=== PATIENT | male | born 1945 | race Caucasian/White ===

== ENCOUNTER → 2016-11-20 | Outpatient (CLI) | payer OTHER ==
[~2016-11-20] MED LIST: ALEV220T26; AMMO12CR4 TOP; ASCO500T PO; ASPI1TAB PO; BABY81CH OR; BENZ200C44 PO; BIOTCAP PO; CAL; CALC1TAB12 PO; CALCIUM WITH VIT D PO; CELE-19 PO; CEPH500T PO; CHLO25TA PO; CINN500C9 PO; COUM2.5T11 PO; DILA100C OR; FERR325T OR; FERR325T3 PO; FOSI; FOSINOPRIL PO; IRBE150T14 PO; LYRI75CA PO; MULTCAP PO; MULTIVIT PO; NORC1TAB4 PO; PERC5TAB6 PO; PHEN125S PO; PREVINJ2; PROBCAP4 PO; REQU1TAB16 PO; STOOL SOFTENER PO; TESS100C PO; TYLE325T5 PO; U; VALS1TAB46 PO; VIT; VIT B12 PO; VITA-199 PO; VITA100054 PO; VITA500C10 PO; VITA500C24 PO; VITA500T68 PO; VITMTA PO; WARF-23 PO; [UNRECOGNIZED DRUG - OTHER] PO
[2016-11-20 18:16] LABS: BASO # 0.1 K/mm3 (0.0-0.2); BASO % 0.4 % (0.0-1.0); EOS # 0.2 K/mm3 (0.0-0.50); EOS % 1.2 % (0.0-3.0); LARGE UNSTAINED CELL # 0.1 K/mm3 (0.0-0.4); LARGE UNSTAINED CELL % 0.9 % (0.0-4.0); LYMPH % 11.9 % (24.0-44.0); MEAN CORPUSCULAR HEMOGLOBIN 28.3 pg (27.0-33.0); MEAN CORPUSCULAR VOLUME 91.3 fl (80.0-96.0); MONO # 0.9 K/mm3 (0.0-0.8); MONO % 5.6 % (0.0-5.0); NEUTROPHILS # 12.2 K/mm3 (1.8-7.7); NEUTROPHILS % 79.9 % (36.0-66.0); PLATELET COUNT, AUTOMATED 621 k/mm3 (150-450); RED CELL DISTRIBUTION WIDTH 13.5 % (11.5-14.5); WHITE BLOOD COUNT 15.2 K/mm3 (4.0-10.0)
[2016-11-20 18:42] LABS: ALBUMIN 2.5 GM/DL (3.2-5.2); ALBUMIN/GLOBULIN RATIO 0.54 (1.00-1.93); BILIRUBIN,TOTAL 0.3 MG/DL (0.2-1.0); CALCIUM LEVEL 8.5 MG/DL (8.8-10.2); CREATININE FOR GFR 1.3 MG/DL (0.70-1.30); GLOMERULAR FILTRATION RATE 58.1 (>42); POTASSIUM SERUM 4.3 MEQ/L (3.5-5.1); TOTAL PROTEIN 7.1 GM/DL (6.4-8.2)
== END ==
LOC: M WUC 15:42
PROVIDERS: ATTEND Physician Assistant
DX: R10.11 Right upper quadrant pain (principal)

== ENCOUNTER 2016-11-22 10:42 | Emergency (ER) | payer OTHER ==
[~2016-11-22] VITALS: Ht 185.4 cm; Wt 149.7 kg
[~2016-11-22 10:42] MED LIST changes: -AMMO12CR4 TOP; -ASCO500T PO; -BENZ200C44 PO; -CALC1TAB12 PO; -CEPH500T PO; -CHLO25TA PO; -NORC1TAB4 PO; -PREVINJ2; -PROBCAP4 PO; -TESS100C PO; -VALS1TAB46 PO; -VITA-199 PO; -VITA500C10 PO; -VITMTA PO; -WARF-23 PO
[2016-11-22] MEDS ORDERED: AMMO12CR4 TOP (10:58)
[2016-11-22] MEDS ORDERED: WARF-23 PO (10:58)
[2016-11-22] MEDS ORDERED: PROBCAP4 PO (10:58)
[2016-11-22] MEDS ORDERED: CHLO25TA PO (10:58)
[2016-11-22] MEDS ORDERED: PREVINJ2 (10:58)
[2016-11-22] MEDS ORDERED: CEPH500T PO (10:58)
[2016-11-22] MEDS ORDERED: VITA500C10 PO (10:58)
[2016-11-22] MEDS ORDERED: VALS1TAB46 PO (10:58)
[2016-11-22 11:53] LABS: BASO # 0.1 K/mm3 (0.0-0.2); BASO % 0.5 % (0.0-1.0); EOS # 0.2 K/mm3 (0.0-0.50); EOS % 1.5 % (0.0-3.0); LARGE UNSTAINED CELL # 0.2 K/mm3 (0.0-0.4); LYMPH % 13.2 % (24.0-44.0); MEAN CORPUSCULAR HGB CONC 30.9 g/dl (32.0-36.5); MEAN CORPUSCULAR VOLUME 90.7 fl (80.0-96.0); MONO # 0.6 K/mm3 (0.0-0.8); MONO % 3.9 % (0.0-5.0); NEUTROPHILS # 11.4 K/mm3 (1.8-7.7); NEUTROPHILS % 79.9 % (36.0-66.0); PLATELET COUNT, AUTOMATED 605 k/mm3 (150-450); RED CELL DISTRIBUTION WIDTH 13.5 % (11.5-14.5); WHITE BLOOD COUNT 14.3 K/mm3 (4.0-10.0)
[2016-11-22 12:08] LABS: ALBUMIN 2.5 GM/DL (3.2-5.2); ALBUMIN/GLOBULIN RATIO 0.49 (1.00-1.93); ALKALINE PHOSPHATASE 165 U/L (45-117); ALT/SGPT 22 U/L (12-78); ANION GAP 7 MEQ/L (8-16); AST/SGOT 22 U/L (15-37); BILIRUBIN,DIRECT < 0.1 MG/DL (0.0-0.2); BILIRUBIN,TOTAL 0.2 MG/DL (0.2-1.0); BLOOD UREA NITROGEN 38 MG/DL (7-18); CALCIUM LEVEL 9.3 MG/DL (8.8-10.2); CARBON DIOXIDE LEVEL 31 MEQ/L (21-32); CHLORIDE LEVEL 99 MEQ/L (98-107); CREATININE FOR GFR 1.14 MG/DL (0.70-1.30); GLOMERULAR FILTRATION RATE > 60.0 (>42); GLUCOSE, FASTING 102 MG/DL (83-110); POTASSIUM SERUM 3.8 MEQ/L (3.5-5.1); SODIUM LEVEL 137 MEQ/L (136-145); TOTAL PROTEIN 7.6 GM/DL (6.4-8.2)
[2016-11-22 13:20] LABS: INR 6.91
[2016-11-22] MEDS ORDERED: ISOVUE-370 76% 100ML VIAL (Q9967) As Ordered ONE (13:24)
[2016-11-22] MEDS ORDERED: MORPHINE 4 MG/ML 1ML SYRINGE IV ONE (13:30)
--- NOTE | 2016-11-22 13:36 | REP ---
RIGHT UPPER QUADRANT SONOGRAPHY: HISTORY: Pain and lump. Question hematoma versus hernia. FINDINGS: Scanning through the area of the palpable lump demonstrates a complex predominately hypoechoic lesion measuring 9.7 x 3.8 x 1.7 cm. There appears to be a layering echogenic material suggesting a fluid collection. No peristalsis is seen. The lesion is in the deep subcutaneous fat layer. IMPRESSION: Complex hypoechoic 9.7 x 3.8 x 1.7 cm lesion compatible with hematoma abscess or other lesion. It does not appear to be a bowel containing hernia. Abdominal CT study may provide more information. Signed by Alexsander Lawton MD 11/22/2016 04:59 P
[2016-11-22] MEDS ORDERED: NS 500 ML IV ONE (13:45)
--- NOTE | 2016-11-22 14:42 | REP ---
CT ABDOMEN PELVIS WITHOUT IV OR ORAL CONTRAST: HISTORY: Right upper quadrant pain. Question hematoma. Comparison is made with today's sonography. Comparison CT study is from March 24, 2014. CT FINDINGS: There is normal bowel gas pattern on the digital center customer service associate radiograph. The lung bases show mild bibasilar linear fibrosis. There is an eventration of the left hemidiaphragm posteriorly. The patient's right upper anterior abdominal wall mass is seen to be a fusiform slightly hyperdense heterogeneous lesion within in the right rectus abdominis muscle consistent with a rectus sheath hematoma. This measures 10.4 x 5.7 x 13.4 cm. There is some adjacent inflammatory edema. No abdominal wall defect or hernia is seen. The liver and spleen are normal in size and homogeneous in texture. No adrenal lesion is seen. Pancreas is unremarkable. There is a tiny accessory splenule. The gallbladder is distended measuring 13 cm in greatest diameter. No stone is seen by CT. Incidental note is made of a fairly large area of nodular mural thickening involving the hepatic flexure segment of the colon consistent with adenocarcinoma. There is no definite adjacent adenopathy but there is some pericolonic fat streaking. No diverticular changes are seen. Normal appendix is observed. The lesion involves the ascending colon just above the ileocecal valve. It measures 8 cm in length. The kidneys enhance symmetrically are morphologically intact. Dystrophic calcifications seen in the prostate. No bony destructive lesion is seen. IMPRESSION: 1. 13 cm right upper abdominal rectus sheath hematoma. 2. Distended gallbladder. 3. Annular napkin ring-like mass lesion involving the ascending colon and hepatic flexure consistent with adenocarcinoma. Signed by Alexsander Lawton MD 11/22/2016 05:01 P
[2016-11-22] MEDS ORDERED: NORC1TAB4 PO (16:06)
[2016-11-22] MEDS ORDERED: TESS100C PO (16:06)
[2016-11-22 16:43] VITALS: BP 141/80
[2016-12-17] MEDS ORDERED: CINN500T PO (11:24)
[2016-12-17] MEDS ORDERED: ROPI2TAB PO (11:24)
[2016-12-17] MEDS ORDERED: GLUC1CAP10 PO (11:24)
[2016-12-17] MEDS ORDERED: PHEN15CA58 PO (11:37)
[2016-12-17] MEDS ORDERED: WARF-23 PO (11:49)
== END 2016-11-22 16:45 | disposition home or self-care (01) ==
LOC: M ED 11:49
DX: S30.1XXA Contusion of abdominal wall, initial encounter (principal); X58.XXXA Exposure to other specified factors, initial encounter; Y92.89 Other specified places as the place of occurrence of the external cause; Y93.89 Activity, other specified; D64.9 Anemia, unspecified; Y99.8 Other external cause status; K63.89 Other specified diseases of intestine; D68.9 Coagulation defect, unspecified; I48.91 Unspecified atrial fibrillation; I10 Essential (primary) hypertension; G47.30 Sleep apnea, unspecified; Z98.84 Bariatric surgery status; Z79.899 Other long term (current) drug therapy; Z79.01 Long term (current) use of anticoagulants; Z91.012 Allergy to eggs; Z91.018 Allergy to other foods; Z87.891 Personal history of nicotine dependence

== ENCOUNTER 2016-11-23 02:58 | Emergency (ER) | payer OTHER ==
[~2016-11-23] VITALS: Ht 185.4 cm; Wt 149.7 kg
[~2016-11-23 02:58] MED LIST changes: +AMMO12CR4 TOP; +CEPH500T PO; +CHLO25TA PO; +NORC1TAB4 PO; +PREVINJ2; +PROBCAP4 PO; +TESS100C PO; +VALS1TAB46 PO; +VITA500C10 PO; +WARF-23 PO
[2016-11-23] MEDS ORDERED: PHYTONADIONE 5 MG TAB PO ONE (05:30)
[2016-11-23] MEDS ORDERED: PHYTONADIONE INJection 5 MG in NS 50 ML IV ONE (05:30)
[2016-11-23] MEDS ORDERED: DERMABOND TOPICAL SKIN ADHESIVE TOP ONE (06:15)
[2016-11-23 06:51] VITALS: BP 128/87
[2016-11-24] MEDS ORDERED: ASCO500T PO (12:30)
[2016-11-24] MEDS ORDERED: BENZ200C44 PO (12:30)
[2016-11-24] MEDS ORDERED: VITMTA PO (12:30)
[2016-11-24] MEDS ORDERED: VITA-199 PO (12:30)
[2016-11-24] MEDS ORDERED: CALC1TAB12 PO (12:36)
[2016-12-17] MEDS ORDERED: CINN500T PO (11:24)
[2016-12-17] MEDS ORDERED: ROPI2TAB PO (11:24)
[2016-12-17] MEDS ORDERED: GLUC1CAP10 PO (11:24)
[2016-12-17] MEDS ORDERED: PHEN15CA58 PO (11:37)
[2016-12-17] MEDS ORDERED: WARF-23 PO (11:49)
== END 2016-11-23 06:52 | disposition home or self-care (01) ==
LOC: M ED 04:04
DX: T80.89XA Other complications following infusion, transfusion and therapeutic injection, initial encounter (principal); D68.9 Coagulation defect, unspecified; I48.91 Unspecified atrial fibrillation; G40.909 Epilepsy, unspecified, not intractable, without status epilepticus; Z79.899 Other long term (current) drug therapy; Z79.01 Long term (current) use of anticoagulants; Z91.012 Allergy to eggs; Z91.018 Allergy to other foods

== ENCOUNTER 2016-11-24 09:09 | Inpatient (IN) | payer OTHER ==
[~2016-11-24] VITALS: Ht 185.4 cm; Wt 139.0 kg
[2016-11-24 10:30] LABS: MEAN CORPUSCULAR HEMOGLOBIN 27.6 pg (27.0-33.0); MEAN CORPUSCULAR HGB CONC 30.2 g/dl (32.0-36.5); MEAN CORPUSCULAR VOLUME 91.3 fl (80.0-96.0); RED CELL DISTRIBUTION WIDTH 14.1 % (11.5-14.5); WHITE BLOOD COUNT 18.1 K/mm3 (4.0-10.0)
[2016-11-24 10:37] LABS: INR 1.38
[2016-11-24] MEDS ORDERED: NS 1,000 ML IV ONE (12:15)
[2016-11-24] MEDS ORDERED: BENZ200C44 PO (12:30)
[2016-11-24] MEDS ORDERED: VITMTA PO (12:30)
[2016-11-24] MEDS ORDERED: ASCO500T PO (12:30)
[2016-11-24] MEDS ORDERED: VITA-199 PO (12:30)
[2016-11-24] MEDS ORDERED: CALC1TAB12 PO (12:36)
[2016-11-24] MEDS ORDERED: ONDANSETRON 4 MG TAB (S0181) PO PRN (13:00)
[2016-11-24] MEDS ORDERED: NORCO, ANEXSIA 5/325MG TABLET (HYDROcodone/ACETAMINOPHEN) PO PRN (13:15)
[2016-11-24] MEDS ORDERED: BENZONATATE 100 MG CAP PO PRN (13:15)
--- NOTE | 2016-11-24 13:31 | HPE ---
DATE OF ADMISSION: 11/24/2016 REASON FOR ADMISSION: Abdominal wall hematoma, colon mass, and gastrointestinal (GI) bleed. PRIMARY CARE PROVIDER: Dr. Landry ATTENDING PROVIDER: Dr. Wagner HISTORY OF PRESENT ILLNESS: The patient is a 71-year-old male, past medical history significant for atrial fibrillation, hypertension, iron deficiency anemia and seizure disorder, presented to the emergency room on 11/22/2016, complaining of right upper quadrant pain. He stated he recently had an upper respiratory tract infection, and he had been coughing forcibly until he started to feel abdominal pain. He came to the emergency room. In the emergency room (ER), he had a CT of the abdomen, which showed a 13 cm right upper abdominal rectus sheath hematoma, distended gallbladder and annular napkin ring like mass lesion involving the ascending colon and hepatic flexure, consistent with adenocarcinoma. The patient was instructed to go home and make an appointment with Dr. Tran, who was contacted from the emergency room that day. He was also to return back for recheck in the emergency room in 2 days for hematocrit check. The patient presented to the emergency room again yesterday because of bleeding from his IV site. INR was found to be 6.9 on 11/22/2016 and then yesterday labs were not repeated but the patient was given a dose of vitamin K. Today, his INR is 1.38. At that time, it was thought that the patient is best to be admitted since his hemoglobin also dropped a little bit from 9.8 on 11/22/2016 to 9.0 on 11/24/2016. Hematoma appears to be stable. Dr. Tran was re-consulted from the emergency room and hospitalist was called for the admission. At this time, the patient denies any dizziness, lightheadedness, chest pain or shortness of breath, only complaining of abdominal pain. Denies bright red blood in the stool, but has stated that it has been dark. However, the patient is normally on iron daily. No other symptoms or complaints. REVIEW OF SYSTEMS: 12-point review of systems was obtained, all of which was negative except for those mentioned above. PAST MEDICAL HISTORY: Significant for atrial fibrillation, hypertension, iron deficiency anemia and seizures. PAST SURGICAL HISTORY: Significant for bilateral knee, gastric bypass. ALLERGIES: No known drug allergies. SOCIAL HISTORY: The patient used to smoke but has quit 30 years ago. Alcohol use rarely. He lives at home with his . FAMILY HISTORY: The patient is adopted. HOME MEDIATIONS: Include: - Tylenol ever 4 hours as needed for pain - Candia 5-325 one tablet every 6 hours as needed for pain - vitamin C 1000 mcg by mouth daily - benzonatate 200 mg as needed for cough - chlorthalidone 25 mg by mouth daily - iron sulfate 325 mg by mouth daily - probiotic one capsule by mouth daily - multivitamin two tablets by mouth daily - phenytoin 250 mg in the morning and 375 mg at night - valsartan 80 mg by mouth daily PHYSICAL FINDINGS: Vital Signs: On admission, temperature 97.7, pulse 77, respiratory rate 18, blood pressure is 114/72, pulse oximetry 98% on room air. HEENT: Pupils equal, round, reactive to light and accommodation. Neck is supple. No jugular venous distention. Lungs: Clear to auscultation bilaterally. Cardiac: Irregular rate and rhythm. Abdomen: Tenderness to palpation. Positive bowel sounds. Soft. Extremities: No clubbing, cyanosis or edema. Neurologic: Cranial nerves II-XII grossly intact. No focal deficits. LABORATORY FINDINGS: WBC is 18.1, hemoglobin 9.0, hematocrit 29.8, platelet count 636, PT 17.1, INR 1.38. IMAGING: As above. ASSESSMENT AND PLAN: 1. Abdominal wall hematoma [address] scan done on 11/22/2016. Dr. Tran was consulted. We will continue to hold the patient's Coumadin. Continue to monitor. Continue Candia for pain control. 2. Colonic mass at the hepatic flexure. The patient will likely need a workup prior to discharge home. Dr. Tran will see the patient and decide when to do colonoscopy. We will continue to monitor the patient on the progressive care unit (PCU). 3. History of atrial fibrillation rate. Rate is controlled. We will hold Coumadin. The patient's INR today is 1.3; it was 6.25 two days ago. We will continue to hold for now. 4. History of hypertension. We will resume the patient's chlorthalidone but hold valsartan for now. 5. History of iron deficiency anemia. Continue iron sulfate. The patient has a positive occult blood today. 6. History of seizures. Will continue the patient's home dose of phenytoin. 7. Deep vein thrombosis (DVT) prophylaxis. Thromboembolism deterrents (TEDs) and sequentials while in bed.
[2016-11-24 14:22] VITALS: BP 125/66
[2016-11-24 16:00] VITALS: BP 127/52
[2016-11-24 16:33] VITALS: BP_SYST 116; BP_SYST 125; BP_DIAS 52; BP_DIAS 91
[2016-11-24 16:34] VITALS: BP 113/74
[2016-11-24 20:00] VITALS: BP 120/63
[2016-11-24] MEDS: PHENYTOIN 100 MG/4 ML SUSP UDC PO SCH (20:14)
[2016-11-24 23:59] VITALS: BP_SYST 116; BP_SYST 117; BP_SYST 98; BP_DIAS 54; BP_DIAS 64
[2016-11-25] VITALS (8 sets, daily range): BP systolic 115–146; BP diastolic 52–81
[2016-11-25] MEDS ORDERED: SLF 3 ML SYR IV PRN (00:30)
[2016-11-25] MEDS: SLF 3 ML SYR IV SCH ×3 (04:14→20:50)
[2016-11-25 04:46] LABS: MEAN CORPUSCULAR HGB CONC 30.4 g/dl (32.0-36.5); MEAN CORPUSCULAR VOLUME 92.1 fl (80.0-96.0); RED CELL DISTRIBUTION WIDTH 14.1 % (11.5-14.5); WHITE BLOOD COUNT 13.7 K/mm3 (4.0-10.0)
[2016-11-25 05:06] LABS: INR 1.42
[2016-11-25 05:08] LABS: ALBUMIN/GLOBULIN RATIO 0.49 (1.00-1.93); ALKALINE PHOSPHATASE 133 U/L (45-117); ALT/SGPT 19 U/L (12-78); ANION GAP 7 MEQ/L (8-16); AST/SGOT 21 U/L (15-37); BILIRUBIN,TOTAL 0.2 MG/DL (0.2-1.0); BLOOD UREA NITROGEN 24 MG/DL (7-18); CALCIUM LEVEL 7.7 MG/DL (8.8-10.2); CARBON DIOXIDE LEVEL 32 MEQ/L (21-32); CHLORIDE LEVEL 100 MEQ/L (98-107); CREATININE FOR GFR 0.93 MG/DL (0.70-1.30); GLOMERULAR FILTRATION RATE > 60.0 (>42); GLUCOSE, FASTING 98 MG/DL (83-110); MAGNESIUM LEVEL 1.8 MG/DL (1.8-2.4); POTASSIUM SERUM 3.2 MEQ/L (3.5-5.1); SODIUM LEVEL 139 MEQ/L (136-145); TOTAL PROTEIN 6.1 GM/DL (6.4-8.2)
[2016-11-25] MEDS: POTASSIUM CHLORIDE 10 MEQ SR TABLET PO SCH ×2 (08:59→13:48)
[2016-11-25] MEDS: LACTOBACILLUS ACIDOPHILUS CAP (BACID) PO SCH (08:59)
[2016-11-25] MEDS: FERROUS SULFATE 325MG TAB PO SCH (09:00)
[2016-11-25] MEDS: CHLORTHALIDONE 25 MG TAB PO SCH (09:00)
[2016-11-25] MEDS: ASCORBIC ACID 500 MG TAB PO SCH (09:00)
[2016-11-25] MEDS: PHENYTOIN 100 MG/4 ML SUSP UDC PO SCH ×2 (09:02→20:49)
--- NOTE | 2016-11-25 17:31 | IPNPDOC ---
Date Seen The patient was seen on 11/25/16. Progress Note Hospitalist Progress Note Subjective: Patient states that he currently feels well. He has not noticed any bleeding Objective: Physical Exam: Vitals: Vital Sign - Last 24 Hours 11/24/16 11/24/16 11/24/16 11/25/16 20:00 23:59 23:59 04:45 Temp 99.3 99.8 99.6 Pulse 95 95 88 113 90 Resp 18 18 18 B/P 120/63 117/64 115/64 98/54 116/64 Pulse Ox 96 96 94 O2 Delivery Room Air Room Air Room Air 11/25/16 11/25/16 11/25/16 11/25/16 08:00 08:00 08:00 08:03 Temp 97.7 Pulse 84 99 99 Resp 18 B/P 137/60 Supine 137/60 128/66 Standing Sitting Pulse Ox 98 O2 Delivery Room Air 11/25/16 11/25/16 11/25/16 11/25/16 08:06 12:00 16:00 16:00 Temp 97.6 96.6 Pulse 120 106 85 90 102 85 Resp 18 18 B/P 146/64 120/60 116/64 120/52 126/58 116/64 Pulse Ox 95 99 O2 Delivery Room Air Room Air General: Awake, alert, no acute distress HEENT: Normocephalic, atraumatic, extraocular movements intact CV:. Irregularly irregular Lungs: Clear to auscultation bilaterally Abd: Soft, tender to palpation over his hematoma, which is located on the right side of his abdomen and shows mild bruising on the surface Extremities: No edema of bilateral lower extremities Neuro: Alert and oriented 3, normal speech Psych: Normal Mood and affect Labs and Imaging: Laboratory Tests 11/24/16 21:01 11/25/16 04:13 Calcium Level 7.7 #L, Aspartate Amino Transf (AST/SGOT) 21, Alanine Aminotransferase (ALT/SGPT) 19, Total Creatine Kinase 125, Alkaline Phosphatase 133 H, Total Bilirubin 0.2, Total Protein 6.1 L, Albumin 2.0 L, Red Blood Count 3.07 L, Mean Corpuscular Volume 92.1, Mean Corpuscular Hemoglobin 28.0, Mean Corpuscular Hemoglobin Concent 30.4 L, Red Cell Distribution Width 14.1 11/25/16 09:55 Assessment and Plan: 71-year-old male with A. fib, hypertension, iron deficiency anemia, seizure disorder who was diagnosed in the ED several days ago with right upper abdominal rectus sheath hematoma and a masslike lesion in his colon. He returned to the ED several days later, with bleeding from his prior IV site, as well as a decrease in his hemoglobin. 1. Abdominal rectus sheath hematoma: This most likely is secondary to Coumadin induced coagulopathy, as the patient was noted in the ER to have an initial INR of 6.9. He evidently had been coughing quite forcibly. INR is now 1.4, and his Coumadin is on hold. General surgery has been consulted, and we'll continue to monitor the patient. 2. Anemia: The patient's hemoglobin in the emergency department several days ago was 9.8. This dropped to 9.0 upon admission, and has continued to trend down to 8.6. We will continue to monitor his hemoglobin. 3. Masslike lesion in his colon: This is concerning for adenocarcinoma. General surgery has been consulted for colonoscopy, and Dr. Funez tells me he'll put the patient on the schedule for . 4. Leukocytosis: Patient WBC upon admission was 18.1, and this has trended down to 13.7 this morning. He is afebrile. I suspect that this is reactive secondary to his coagulopathy and bleeding into his rectus sheath. We will continue to monitor. He is clinically well-appearing 5. Chronic A. fib: The patient is currently rate controlled. We are holding his Coumadin. The patient does not report any rate suppressing meds. 6. Hypertension: Continue home chlorthalidone, but currently holding home ARB. 7. Seizure disorder: Continue home Dilantin. 8. Hypokalemia: Replacing. DVT prophylaxis: SCDs Dispo: pending stabilization of his hemoglobin; if his hemoglobin stabilizes, he could consider getting his colonoscopy as an outpatient VS, I&O, 24H, Fishbone Vital Signs/I&O Vital Signs Date Time Temp Pulse Resp B/P Pulse Ox O2 Delivery O2 Flow Rate FiO2 11/25/16 16:00 90 120/52 102 126/58 85 116/64 11/25/16 16:00 96.6 18 99 Room Air I&O- Last 24 Hours up to 6 AM 11/25/16 05:59 Intake Total 860 ml Output Total 300 ml Balance 560 ml Laboratory Data 24H LABS Laboratory Tests 2 11/24/16 21:01: Creatine Kinase MB 1.2, Creatine Kinase MB Relative Index 0.83, Total Creatine Kinase 144, Troponin I < 0.02 11/25/16 04:13: Creatine Kinase MB 1.7, Creatine Kinase MB Relative Index 1.36, Total Creatine Kinase 125, Troponin I < 0.02, Blood Urea Nitrogen 24H, Creatinine 0.93, Sodium Level 139, Potassium Level 3.2L, Chloride Level 100, Carbon Dioxide Level 32, Calcium Level 7.7#L, Aspartate Amino Transf (AST/SGOT) 21, Alanine Aminotransferase (ALT/SGPT) 19, Alkaline Phosphatase 133H, Total Bilirubin 0.2, Total Protein 6.1L, Albumin 2.0L, Albumin/Globulin Ratio 0.49L, Anion Gap 7L, Glomerular Filtration Rate > 60.0, Magnesium Level 1.8, Prothromb Time International Ratio 1.42, Prothrombin Time 17.5H 11/25/16 14:01: CBC/BMP Laboratory Tests 11/24/16 21:01 11/25/16 04:13 Calcium Level 7.7 #L, Aspartate Amino Transf (AST/SGOT) 21, Alanine Aminotransferase (ALT/SGPT) 19, Total Creatine Kinase 125, Alkaline Phosphatase 133 H, Total Bilirubin 0.2, Total Protein 6.1 L, Albumin 2.0 L, Red Blood Count 3.07 L, Mean Corpuscular Volume 92.1, Mean Corpuscular Hemoglobin 28.0, Mean Corpuscular Hemoglobin Concent 30.4 L, Red Cell Distribution Width 14.1 11/25/16 09:55 ANMOL PRASAD Nov 25, 2016 17:31
--- NOTE | 2016-11-25 20:25 | ECGEPIP ---
Stationary ECG Study [facility] - ED Test Date: 2016-11-24 Pat Name: ZAC SHIN Department: Room: - Gender: M Undercollar Maker: tommy : [id number] Requested By: STEVE JHA PA-C. Order Number: [id number] Reading MD: Erin Alves Measurements Intervals [place] Rate: 83 P: [place]: 0 QRS: 57 QRSD: 181 T: 19 QT: 431 QTc: 507 Interpretive Statements ATRIAL FLUTTER/FIBRILLATION WITH ABERRANT CONDUCTION OR VENTRICULAR PREMATURE COMPLEXES RIGHT BUNDLE BRANCH BLOCK Electronically Signed On 11-25-2016 20:25:05 EDT by Erin Alves
[2016-11-26 04:31] VITALS: BP 136/80
[2016-11-26] MEDS: ACETAMINOPHEN 325 MG TAB PO PRN ×2 (04:33→08:53)
[2016-11-26] MEDS: SLF 3 ML SYR IV SCH ×3 (05:22→21:36)
[2016-11-26 05:44] LABS: MEAN CORPUSCULAR HEMOGLOBIN 28.6 pg (27.0-33.0); MEAN CORPUSCULAR HGB CONC 30.7 g/dl (32.0-36.5); RED CELL DISTRIBUTION WIDTH 14.1 % (11.5-14.5); WHITE BLOOD COUNT 11.9 K/mm3 (4.0-10.0)
[2016-11-26 05:50] LABS: INR 1.44
[2016-11-26 06:09] LABS: ALBUMIN/GLOBULIN RATIO 0.48 (1.00-1.93); ALKALINE PHOSPHATASE 139 U/L (45-117); ALT/SGPT 26 U/L (12-78); ANION GAP 8 MEQ/L (8-16); AST/SGOT 32 U/L (15-37); BILIRUBIN,TOTAL 0.2 MG/DL (0.2-1.0); BLOOD UREA NITROGEN 21 MG/DL (7-18); CALCIUM LEVEL 7.9 MG/DL (8.8-10.2); CARBON DIOXIDE LEVEL 30 MEQ/L (21-32); CHLORIDE LEVEL 102 MEQ/L (98-107); CREATININE FOR GFR 0.97 MG/DL (0.70-1.30); GLOMERULAR FILTRATION RATE > 60.0 (>42); GLUCOSE, FASTING 92 MG/DL (83-110); MAGNESIUM LEVEL 1.9 MG/DL (1.8-2.4); POTASSIUM SERUM 3.7 MEQ/L (3.5-5.1); SODIUM LEVEL 140 MEQ/L (136-145); TOTAL PROTEIN 6.2 GM/DL (6.4-8.2)
[2016-11-26 07:50] VITALS: BP 122/84
[2016-11-26] MEDS: CHLORTHALIDONE 25 MG TAB PO SCH (08:49)
[2016-11-26] MEDS: FERROUS SULFATE 325MG TAB PO SCH (08:49)
[2016-11-26] MEDS: LACTOBACILLUS ACIDOPHILUS CAP (BACID) PO SCH (08:49)
[2016-11-26] MEDS: ASCORBIC ACID 500 MG TAB PO SCH (08:49)
[2016-11-26] MEDS: PHENYTOIN 100 MG/4 ML SUSP UDC PO SCH ×2 (08:50→21:35)
[2016-11-26] MEDS ORDERED: ISOVUE-370 76% 100ML VIAL (Q9967) As Ordered ONE (10:16)
--- NOTE | 2016-11-26 10:16 | IPN ---
DATE OF SERVICE: 11/26/2016 A 71-year-old male seen at bedside resting comfortably. He denies any issues overnight. However, he has had a cough for 6 months now, he informs me. He is currently being placed on a schedule for a colonoscopy this coming with Dr. Funez due to a colonic mass. He feels his abdominal pain and hematoma is doing somewhat better, and we had discussed earlier this morning during multidisciplinary rounds about downgrading to the general medical floor. He has no signs or issues with bleeding or bruising. No hematemesis, hemoptysis, hematochezia, or melena. No hematuria. OBJECTIVE: Temperature is 98.2, pulse 96, respiratory rate is 22, blood pressure (BP) 122/84, SpO2 is 97% on room air. General: The patient appears to be in no acute distress. He is alert, oriented, pleasant. HEENT: Unremarkable. Lungs: Clear. Heart: Regular rate and rhythm. Abdomen is obese. He does have ecchymosis and bruising and palpable tenderness in the right upper quadrant, as stated previously. However, this does appear to be at an advanced stage of healing with the ecchymosis being more of a greenish discoloration at this time but does appear to be resolving. Extremities: No edema. No calf tenderness. LABORATORY DATA: White count is 11.9, hemoglobin 9.1 and stable, platelets are 569,000. Sodium 140, potassium 3.7, chloride 102, bicarbonate 30, anion gap 8, BUN 21, creatinine 0.97, glucose 92, magnesium 1.9, AST is 32, ALT 26, alkaline phosphatase 139, albumin is 2.0. INR 1.44. ASSESSMENT AND PLAN: 1. Abdominal rectus sheath hematoma. International normalized ratio (INR) currently 1.44. Coumadin is on hold. General surgery has been consulted. Will continue to monitor. His hemoglobin and hematocrit remains stable. 2. Acute blood loss anemia. His hemoglobin and hematocrit does appear to be stable. Will continue to monitor. He is currently asymptomatic. Will not do any blood transfusion today. 3. Mass-like lesion involving the colon, concerning for adenocarcinoma. Dr. Funez has been consulted and anticipating colonoscopy on . He will likely need bowel prep on Friday. 4. Chronic cough for greater than 6 months. This associated with his concerning lesion in the colon. Will go ahead and get a CT of the chest with contrast today. 5. Leukocytosis. White blood cell (WBC) was elevated on admission. This has trended downward nicely. Will continue to monitor. Clinically, he does not show any signs of sepsis or infection. 6. Chronic atrial fibrillation (AFib). He is rate controlled. Coumadin is currently on hold and will continue to hold for a few more days until likely after his colonoscopy is complete. 7. Hypertension, stable on chlorthalidone. Will likely go ahead and resume his angiotensin receptor manolo (ARB). 8. Seizure disorder. Continue on Dilantin. 9. Hypokalemia, resolved. 10. Deep venous thrombosis (DVT) prophylaxis. Thromboembolic deterrents (TEDs) and sequential compression devices (SCDs). DISPOSITION: He does appear to be doing much better. His hemoglobin and hematocrit is stable. I would like to downgrade him to a general medical floor and, as stated above, we are waiting for Dr. Funez's evaluation and possible colonoscopy on . In the meantime, I would like to go ahead and get a CT of the chest since he has had this chronic cough, which is concerning with his underlying history of possible colonic mass.
[2016-11-26 12:41] VITALS: BP 139/82
[2016-11-26 18:00] VITALS: BP 139/73
[2016-11-26 22:00] VITALS: BP 140/78
[2016-11-27 02:00] VITALS: BP 160/72
--- NOTE | 2016-11-27 03:41 | REP ---
Clinical: Chronic cough. Technique: Axial contrast enhanced images from the thoracic inlet to the upper abdomen using 100 ml Isovue 370 intravenous contrast material with coronal and sagittal re-formations. Comparison: 03/24/2014. Findings: Small to moderate bilateral lower lobe atelectasis and consolidations are appreciated (right greater than left). A 4 mm noncalcified pulmonary nodule in the right lower lobe (image 52) is unchanged compared to 03/24/2014. No pleural effusion. No pneumothorax. Tracheobronchial tree is patent. Nonspecific mediastinal and right hilar adenopathy measuring less than 8 mm short axis diameter. Heart/pericardium and thoracic aorta demonstrate atherosclerotic changes without cardiomegaly or pericardial effusion and no evidence for aortic aneurysm/dissection. Limited evaluation of the upper abdomen demonstrates nodularity to the bilateral adrenal glands likely mild hyperplastic changes. A presumed hematoma in the right rectus muscle measures roughly 11.8 x 5.6 cm transverse diameter. Surrounding musculoskeletal structures demonstrate age-related changes. Impression: 1. Small to moderate bilateral lower lobe atelectasis/consolidations. 2. 4 mm noncalcified pulmonary nodule in the right lower lobe unchanged compared to 03/24/2014 and likely representing chronic benign granuloma. 3. Presumed right rectus hematoma. Signed by Johnathan Cooper MD 11/27/2016 03:33 A
[2016-11-27] MEDS: SLF 3 ML SYR IV SCH ×3 (05:27→20:24)
[2016-11-27 06:00] VITALS: BP 142/94
[2016-11-27] MEDS ORDERED: MOM 30ML SUSPENSION UDC PO ONE (06:00)
[2016-11-27 07:20] LABS: MEAN CORPUSCULAR HEMOGLOBIN 29.5 pg (27.0-33.0); MEAN CORPUSCULAR HGB CONC 31.8 g/dl (32.0-36.5); RED CELL DISTRIBUTION WIDTH 14.4 % (11.5-14.5); WHITE BLOOD COUNT 13.1 K/mm3 (4.0-10.0)
[2016-11-27 07:24] LABS: INR 1.38
[2016-11-27 07:52] LABS: ALBUMIN 2.2 GM/DL (3.2-5.2); ALBUMIN/GLOBULIN RATIO 0.48 (1.00-1.93); ALKALINE PHOSPHATASE 144 U/L (45-117); ALT/SGPT 29 U/L (12-78); ANION GAP 8 MEQ/L (8-16); AST/SGOT 33 U/L (15-37); BILIRUBIN,TOTAL 0.3 MG/DL (0.2-1.0); BLOOD UREA NITROGEN 18 MG/DL (7-18); CALCIUM LEVEL 8.7 MG/DL (8.8-10.2); CARBON DIOXIDE LEVEL 32 MEQ/L (21-32); CHLORIDE LEVEL 100 MEQ/L (98-107); CREATININE FOR GFR 0.88 MG/DL (0.70-1.30); GLOMERULAR FILTRATION RATE > 60.0 (>42); GLUCOSE, FASTING 95 MG/DL (83-110); MAGNESIUM LEVEL 2.4 MG/DL (1.8-2.4); POTASSIUM SERUM 3.7 MEQ/L (3.5-5.1); SODIUM LEVEL 140 MEQ/L (136-145); TOTAL PROTEIN 6.8 GM/DL (6.4-8.2)
[2016-11-27] MEDS: CHLORTHALIDONE 25 MG TAB PO SCH (07:59)
[2016-11-27] MEDS: ASCORBIC ACID 500 MG TAB PO SCH (07:59)
[2016-11-27] MEDS: FERROUS SULFATE 325MG TAB PO SCH (07:59)
[2016-11-27] MEDS: LACTOBACILLUS ACIDOPHILUS CAP (BACID) PO SCH (07:59)
[2016-11-27] MEDS: PHENYTOIN 100 MG/4 ML SUSP UDC PO SCH ×2 (08:00→20:25)
[2016-11-27 10:00] VITALS: BP 127/69
[2016-11-27] MEDS ORDERED: GOLYTELY SOLN 4000 ML BTL PO ONE ×2 (12:00→18:00)
[2016-11-27 14:00] VITALS: BP_SYST 131; BP_SYST 76; BP_DIAS 18; BP_DIAS 67
--- NOTE | 2016-11-27 17:27 | IPN ---
DATE: 11/27/2016 A 71-year-old male seen at bedside. No overnight issues reported. He appears to be resting comfortably. We did discuss his abdominal wall hematoma and he is doing bowel preparation for colonoscopy. No chest pain. No nausea or vomiting. OBJECTIVE: VITAL SIGNS: Temperature is 98.9, pulse 76, respiratory rate 18, blood pressure 127/69, SPO2 is 99% on room air. GENERAL: The patient appears to be in no acute distress. He is alert and oriented. HEENT: Unremarkable. LUNGS: Clear. ABDOMEN: Soft, except for the hematoma. EXTREMITIES: No edema. No calf tenderness. LABORATORY DATA: White count 13.1, hemoglobin 9.6, platelets 640,000. Sodium is 140, potassium 3.7, chloride 100, bicarbonate 32, anion gap 8, BUN is 18, creatinine 0.88, glucose is 95, magnesium 2.4, total bilirubin 0.3, AST is 33, ALT is 29, alkaline phosphatase is 144, albumin 2.2, INR 1.38. ASSESSMENT AND PLAN: 1. Abdominal rectus sheath hematoma. International normalized ratio (INR) is below 2. His Coumadin is on hold. Appreciate surgery's input. Hemoglobin and hematocrit is stable. 2. Acute blood loss anemia, not requiring any further blood transfusion. 3. Mass-like lesion involving the colon, concerning for adenocarcinoma. Appreciate Dr. Funez's input. Anticipate colonoscopy tomorrow. Continue bowel preparation and nothing by mouth. 4. Chronic cough greater than six months. Small to moderate bilateral lobe 4 mm noncalcified pulmonary nodule of the right lower lobe unchanged from 03/24/2014, likely representing a chronic benign granuloma, presumed right rectus hematoma is noted again. He can followup with the granulomas as needed with his outpatient provider. 5. Leukocytosis. We will continue to follow. No signs of sepsis. 6. Chronic atrial fibrillation. He is rate controlled and again the Coumadin is on hold until after his colonoscopy and we are confident that his bleeding into the abdominal rectus sheath has subsided. 7. Hypertension, stable with chlorthalidone. Resume angiotensin-receptor manolo (ARB) tomorrow. 8. Seizure disorder. Continue Dilantin. 9. Hypokalemia, resolved. 10. Deep vein thrombosis (DVT) prophylaxis. Thromboembolic-deterrent stockings (TEDS) and sequential compression device (SCD). DISPOSITION: He does appear to be doing better. Hemodynamically, he does appear to be stable and appreciate Dr. Funez's input with anticipated colonoscopy tomorrow.
[2016-11-27 18:00] VITALS: BP 109/66
[2016-11-27 22:00] VITALS: BP 121/83
[2016-11-28 02:00] VITALS: BP 136/82
[2016-11-28] MEDS: SLF 3 ML SYR IV SCH ×2 (05:23→13:36)
[2016-11-28 06:00] VITALS: BP 134/86
[2016-11-28 06:53] LABS: MEAN CORPUSCULAR HGB CONC 30.5 g/dl (32.0-36.5); MEAN CORPUSCULAR VOLUME 91.8 fl (80.0-96.0); RED CELL DISTRIBUTION WIDTH 14.3 % (11.5-14.5)
[2016-11-28 07:05] LABS: INR 1.56
[2016-11-28 07:21] LABS: ALBUMIN 2.2 GM/DL (3.2-5.2); ALBUMIN/GLOBULIN RATIO 0.51 (1.00-1.93); ALKALINE PHOSPHATASE 145 U/L (45-117); ALT/SGPT 28 U/L (12-78); ANION GAP 6 MEQ/L (8-16); AST/SGOT 26 U/L (15-37); BILIRUBIN,TOTAL 0.3 MG/DL (0.2-1.0); BLOOD UREA NITROGEN 14 MG/DL (7-18); CALCIUM LEVEL 8.5 MG/DL (8.8-10.2); CARBON DIOXIDE LEVEL 34 MEQ/L (21-32); CHLORIDE LEVEL 100 MEQ/L (98-107); GLOMERULAR FILTRATION RATE > 60.0 (>42); GLUCOSE, FASTING 94 MG/DL (83-110); MAGNESIUM LEVEL 2.1 MG/DL (1.8-2.4); POTASSIUM SERUM 3.5 MEQ/L (3.5-5.1); SODIUM LEVEL 140 MEQ/L (136-145); TOTAL PROTEIN 6.5 GM/DL (6.4-8.2)
[2016-11-28] MEDS ORDERED: MOM 30ML SUSPENSION UDC PO ONE (07:45)
[2016-11-28] MEDS: ASCORBIC ACID 500 MG TAB PO SCH (07:57)
[2016-11-28] MEDS: CHLORTHALIDONE 25 MG TAB PO SCH (07:57)
[2016-11-28] MEDS: FERROUS SULFATE 325MG TAB PO SCH (07:57)
[2016-11-28] MEDS: LACTOBACILLUS ACIDOPHILUS CAP (BACID) PO SCH (07:57)
[2016-11-28] MEDS: PHENYTOIN 100 MG/4 ML SUSP UDC PO SCH (07:58)
[2016-11-28 10:00] VITALS: BP 132/90
--- NOTE | 2016-11-28 12:28 | DSES ---
DATE OF ADMISSION: 11/24/2016 DATE OF DISCHARGE: 11/28/2016 PRIMARY CARE PROVIDER: Dr. Landry CONSULTATIONS: Dr. Funez PROCEDURES: Colonoscopy. COMPLICATIONS: None. ADMISSION/DISCHARGE DIAGNOSES: 1. Abdominal wall hematoma. 2. Questionable colonic mass. 3. Gastrointestinal (GI) bleed, resolved. 4. History of atrial fibrillation, rate controlled. 5. Hypertension. 6. Iron-deficiency anemia. 7. Seizures. BRIEF HOSPITAL COURSE: Mr. Lewis is a pleasant 71-year-old gentleman who presented to the emergency department on 11/24/2016 with abdominal wall hematoma, suspected colonic mass and gastrointestinal (GI) bleed. He had an international normalized ratio (INR) initially of 6.9, was given vitamin K and [place] for pain. Chlorthalidone and valsartan were held for low blood pressure. He did not require any blood transfusions. He did slowly improve with his symptomatology and abdominal pain and the patient was given bowel preparation last night and had a colonoscopy this morning. Those results will be attached to the chart as well. Otherwise, he does appear to be getting along well. He has been tolerating his meals prior to his bowel preparation and his vitals, hemoglobin and hematocrit remain stable. He is felt to be appropriate for home discharge. Temperature is 97, pulse 76 and regular, respiratory rate is 16, blood pressure is 134/86, SPO2 is 94% on room air. GENERAL: The patient is in no acute distress. He is alert and oriented. HEENT: Unremarkable. LUNGS: Clear. HEART: Regular rate and rhythm. ABDOMEN: Soft, protuberant, obese. He does have some bruising and ecchymosis noted over the right side of the abdomen. This does appear to be healing well. EXTREMITIES: No edema. No calf tenderness. LABORATORY DATA: White count is 11, hemoglobin 9, platelets 613. Sodium 140, potassium 3.5, chloride 100, bicarbonate 34, anion gap 6, BUN is 14, creatinine 0.9, glucose is 94, magnesium 2.1, AST 26, ALT 28, alkaline phosphatase 145, albumin is 2.2, INR 1.56. DISCHARGE CONDITION: Good. DISPOSITION: Discharge to home. DISCHARGE MEDICATIONS: - hold Coumadin for a week until he is seen by Dr. Landry - Tylenol 650 mg every four hours as needed - [place] 5/325 one tablet every six hours as needed - vitamin C 1000 mg daily - Tessalon Perles 200 mg three times a day as needed for cough - Biotin 5 mg daily - calcium with vitamin D two tablets twice a day - chlorthalidone 25 mg daily - vitamin D 20,000 units every two days - ferrous sulfate 325 mg daily - Probiotic one tablet daily - multivitamin one tablet daily - phenytoin 250 mg daily and 375 at bedtime - valsartan 80 mg daily DISCHARGE INSTRUCTIONS: Discharge to home. Followup with Dr. Landry in a week. Resume Coumadin once instructed by Dr. Landry in the office on followup. Activity as tolerated. Regular diet. Seek medical attention if symptoms should worsen or progress. He voices understanding. Discharge took 35 minutes.
[2016-11-28] MEDS ORDERED: PROPOFOL 200 MG/20 ML VIAL As Ordered ONE (12:30)
[2016-11-28 12:38] VITALS: BP 96/52
--- NOTE | 2016-11-28 12:38 | ROOR ---
Patient Name: Orion Manley Procedure Date: 11/28/2016 12:18 PM Date of : 1945 Age: 71 Room: [facility] Gender: Male Note Status: Finalized Procedure: Colonoscopy Indications: Abnormal CT of the GI tract Providers: Andrés Funez Jr, MD Referring MD: Katherine Garcia NP Requesting Provider: Medicines: Propofol per Anesthesia Complications: No immediate complications. Procedure: Pre-Anesthesia Assessment: - Prior to the procedure, a History and Physical was performed, and patient medications and allergies were reviewed. The patient is competent. The risks and benefits of the procedure and the sedation options and risks were discussed with the patient. All questions were answered and informed consent was obtained. Patient identification and proposed procedure were verified by the physician and the nurse in the pre-procedure area and in the procedure room. Mental Status Examination: alert and oriented. Airway Examination: normal oropharyngeal airway and neck mobility. Respiratory Examination: clear to auscultation. CV Examination: normal. ASA Grade Assessment: II - A patient with mild systemic disease. After reviewing the risks and benefits, the patient was deemed in satisfactory condition to undergo the procedure. The anesthesia plan was to use moderate sedation / analgesia (conscious sedation). Immediately prior to administration of medications, the patient was re-assessed for adequacy to receive sedatives. The heart rate, respiratory rate, oxygen saturations, blood pressure, adequacy of pulmonary ventilation, and response to care were monitored throughout the procedure. The physical status of the patient was re-assessed after the procedure. The Colonoscope was introduced through the anus and advanced to the ileocecal valve. The colonoscopy was performed without difficulty. The patient tolerated the procedure well. The quality of the bowel preparation was adequate and good. Findings: The perianal and digital rectal examinations were normal. Pertinent negatives include normal sphincter tone, no palpable rectal lesions and no anal lesion or abnormality was detected. Multiple small and large-mouthed diverticula were found in the sigmoid colon. The rectum, recto-sigmoid colon, descending colon, transverse colon and hepatic flexure appeared normal. A fungating, infiltrative and ulcerated partially obstructing large mass was found in the ascending colon. The mass was circumferential. Oozing was present. Biopsies were taken with a cold forceps for histology. Impression: - Diverticulosis in the sigmoid colon. - The rectum, recto-sigmoid colon, descending colon, transverse colon and hepatic flexure are normal. - Malignant partially obstructing tumor in the ascending colon. Biopsied. Recommendation: - Return to my office in 1 week. Andrés Funez MD Andrés Funez Jr, MD 11/28/2016 12:38:22 PM This report has been signed electronically. Number of Addenda: 0 Note Initiated On: 11/28/2016 12:18 PM Estimated Blood Loss: Estimated blood loss: none.
== END 2016-11-28 14:19 | disposition home or self-care (01) | DRG 813 ==
LOC: M ED 09:48 → M ED INP 12:50 → M PCU 14:14 → M MSPAV 11-26 12:40
PROVIDERS: ADMIT Internal Medicine; ATTEND Hospitalist
PROC: 0DBK8ZX Excision of Ascending Colon, Via Natural or Artificial Opening Endoscopic, Diagnostic (ICD-10-PCS; principal; 2016-11-28 12:30)
DX: D68.32 Hemorrhagic disorder due to extrinsic circulating anticoagulants (principal); K92.2 Gastrointestinal hemorrhage, unspecified; D62 Acute posthemorrhagic anemia; C18.2 Malignant neoplasm of ascending colon; I48.91 Unspecified atrial fibrillation; I10 Essential (primary) hypertension; G40.909 Epilepsy, unspecified, not intractable, without status epilepticus; Z87.891 Personal history of nicotine dependence; Z79.899 Other long term (current) drug therapy; M79.81 Nontraumatic hematoma of soft tissue; E87.6 Hypokalemia; R91.8 Other nonspecific abnormal finding of lung field

== ENCOUNTER → 2016-12-05 | Outpatient (REF) | payer OTHER ==
[~2016-12-05] MED LIST changes: +ASCO500T PO; +BENZ200C44 PO; +CALC1TAB12 PO; +VITA-199 PO; +VITMTA PO
== END ==
LOC: M LAB REF 16:46
PROVIDERS: ATTEND Nurse Practitioner Adult Health
DX: R56.9 Unspecified convulsions (principal); Z51.81 Encounter for therapeutic drug level monitoring

== ENCOUNTER 2016-12-24 11:35 | Inpatient (IN) | payer OTHER ==
--- NOTE | 2016-12-23 09:34 | HPE ---
DATE OF ADMISSION: 12/24/2016 BRIEF HISTORY OF PRESENT ILLNESS: The patient is a 71-year-old male who presented to the hospital with anticoagulation issues and had some spontaneous abdominal wall bleed during that workup/CT scan. There was a question of a thickening in the ascending colon. He underwent a colonoscopy which revealed adenocarcinoma of the right colon. He has had some anemia and has multiple medical issues but at this time has been relatively stable. When he was admitted to the hospital, his anemia started to improve and after discharge, he has improved substantially from his overall recovery stage. Now he is at a point where I feel that proceeding with operative intervention is reasonable. PAST MEDICAL HISTORY: Significant for: History of atrial fibrillation. History of hypertension. History of seizures. History of iron deficiency anemia. History of bilateral knee surgery. History of gastric bypass. History of colonoscopy. MEDICATIONS: Include: - benzenoid - biotin - calcium - chlorthalidone - iron - multivitamin - phentermine - phenytoin sodium - probiotics - valsartan - multiple vitamins PHYSICAL EXAM: Reveals a 71-year-old male who looks stated age. HEENT: Reveals an atraumatic, normocephalic head with extraocular movements intact. Pupils are equal and reactive to light. Sclerae nonicteric. Oropharynx clear without exudate or lesions. Neck: Supple without adenopathy. Lungs are clear to auscultation without crackles, wheezes or rhonchi. Heart is regular without murmur. Abdomen is soft, nondistended. He is morbidly obese but he has very soft and pliable abdominal wall. Extremities: Warm, well-perfused. He does have a hematoma on his right lateral abdominal wall that seems to be decreasing in size since I have seen him. IMPRESSION AND PLAN: The patient has a colon cancer in the ascending colon. Will need a right colectomy. We will plan on a laparoscopic right colectomy. The risks as well as benefits have been discussed with him at length those including but not limited to infection, bleeding, damage to surrounding structures including bowel, liver, pancreas, duodenum, bile ducts, damage to his gastric bypass surgery/anastomosis. He understands he will need a bowel prep prior to operative intervention and given his morbid obesity does increase perioperative risks including the increased risk of infections, increased risks of respiratory complications and other comorbidities. He would like to proceed with this as soon as possible. Understands that he will be hospitalized for several days postoperatively until his regain of bowel function. He also understands that there is a very low chance of ostomy placement, but that is also a possibility.
[2016-12-24] VITALS (7 sets, daily range): BP systolic 116–149; BP diastolic 69–87; O2SAT 97
[~2016-12-24] VITALS: Ht 182.9 cm; Wt 136.1 kg
[~2016-12-24 11:35] MED LIST changes: +CINN500T PO; +GLUC1CAP10 PO; +PHEN15CA58 PO; +ROPI2TAB PO
[2016-12-24] MEDS ORDERED: LR 1,000 ML IV SCH ×2 (12:00→17:45)
[2016-12-24] MEDS ORDERED: ceFAZolin SOD 1 GM in D5W MINI-BAG PLUS 50 ML IV ONE (12:00)
[2016-12-24] MEDS ORDERED: LIDOCAINE 2% INJ 100 MG/5 ML SDV (FOR ANES.) As Ordered ONE (12:41)
[2016-12-24] MEDS ORDERED: ROCURONIUM BROMIDE 50 MG/5 ML VIAL As Ordered ONE ×4 (12:41→16:36)
[2016-12-24] MEDS ORDERED: MIDAZOLAM INJ 2 MG/2 ML VIAL (J2250) As Ordered ONE (12:41)
[2016-12-24] MEDS ORDERED: PROPOFOL 200 MG/20 ML VIAL As Ordered ONE (12:41)
[2016-12-24] MEDS ORDERED: fentaNYL 250 MCG/5 ML INJECTION (J3010) As Ordered ONE (12:41)
[2016-12-24 12:43] LABS: INR 1.08
[2016-12-24] MEDS ORDERED: BUPIVACAINE/EPIN 0.25% 30 ML VIAL As Ordered ONE (13:31)
[2016-12-24] MEDS ORDERED: GLUCAGON FOR INJ 1 MG VIAL (J1610) As Ordered ONE (13:31)
[2016-12-24] MEDS: ERTAPENEM SODIUM 1 GM in NS MINI-BAG PLUS 50 ML IV SCH ×2 (13:44→14:00)
[2016-12-24] MEDS ORDERED: ePHEDrine SULFATE 25 MG/5 ML(5MG/ML) SYRINGE As Ordered ONE (14:20)
[2016-12-24] MEDS ORDERED: BUPIVACAINE HCL 0.5% 10 ML VIAL As Ordered ONE (14:38)
[2016-12-24] MEDS ORDERED: BUPIVACAINE LIPOSOME/PF 1.3% 20 ML VIAL (13.3MG/ML)(EXPAREL) As Ordered ONE (14:38)
[2016-12-24] MEDS ORDERED: NEOSTIGMINE 1MG/ML 5 ML SYRINGE (J2710) As Ordered ONE (14:58)
[2016-12-24] MEDS ORDERED: ONDANSETRON 4MG/2ML VIAL (J2405) As Ordered ONE (14:58)
[2016-12-24] MEDS ORDERED: HYDROmorphone HCL 2 MG/ML 1ML VIAL (J1170) As Ordered ONE (14:58)
[2016-12-24] MEDS ORDERED: dexameTHASONE 4 MG/ML 1ML VIAL (J1100) As Ordered ONE (14:58)
[2016-12-24] MEDS ORDERED: GLYCOPYRROLATE INJ 0.2 MG/ML 2 ML VIAL As Ordered ONE (14:58)
[2016-12-24] MEDS ORDERED: ESMOLOL INJ 100MG/10ML VIAL As Ordered ONE (15:13)
[2016-12-24] MEDS ORDERED: DESFLURANE 240 ML INHALANT As Ordered ONE (15:53)
[2016-12-24] MEDS ORDERED: SEVOFLURANE INHAL SOLN 250 ML BTL As Ordered ONE (15:56)
[2016-12-24] MEDS ORDERED: LABETALOL HCL 100 MG/20 ML VIAL As Ordered ONE (16:23)
[2016-12-24] MEDS ORDERED: NS 1,000 ML IV SCH (17:04)
[2016-12-24] MEDS ORDERED: MORPHINE 1MG/ML IN 0.9% NACL 100ML IV BAG As Ordered ONE (17:07)
[2016-12-24] MEDS ORDERED: EPIDURAL/PCA KEYS XX PRN (17:15)
[2016-12-24] MEDS ORDERED: ONDANSETRON 4MG/2ML VIAL (J2405) IV PRN ×3 (17:15→17:45)
[2016-12-24] MEDS ORDERED: zolPIDEM TARTRATE 10MG TAB PO PRN (17:15)
[2016-12-24] MEDS ORDERED: NALOXONE INJ 0.4 MG/1 ML VIAL (J2310) IV PRN (17:15)
[2016-12-24] MEDS ORDERED: NALBUPHINE HCL 10 MG/ML AMP (J2300) IV PRN (17:15)
[2016-12-24] MEDS ORDERED: IPRATROPIUM 0.5MG/ALBUTEROL 2.5MG INH SOL UD 3ML (DUONEB)(J7620) NEB PRN (17:15)
[2016-12-24] MEDS ORDERED: diphenhydrAMINE INJ 50MG/ML VIAL (J1200) IV PRN (17:15)
[2016-12-24] MEDS ORDERED: METOCLOPRAMIDE INJ 10MG/2ML VIAL (J2765) IV PRN (17:15)
[2016-12-24] MEDS ORDERED: PROMETHAZINE INJ 25 MG/ML VIAL (J2550) IV PRN (17:15)
[2016-12-24] MEDS: MORPHINE 1MG/ML IN 0.9% NACL 100ML IV BAG IV PRN (17:20)
[2016-12-24] MEDS ORDERED: fentaNYL 100 MCG/2 ML INJECTION (J3010) As Ordered ONE (17:32)
[2016-12-24] MEDS: fentaNYL 100 MCG/2 ML INJECTION (J3010) IV PRN ×2 (17:32→17:57)
[2016-12-24] MEDS: D5W/LR 1,000 ML IV SCH (19:30)
[2016-12-24] MEDS: IPRATROPIUM 0.5MG/ALBUTEROL 2.5MG INH SOL UD 3ML (DUONEB)(J7620) NEB SCH ×2 (20:00→20:27)
[2016-12-24] MEDS: ALVIMOPAN 12 MG CAPSULE (ENTEREG) PO SCH (20:13)
[2016-12-24] MEDS: PHENYTOIN 100 MG/4 ML SUSP UDC PO SCH (20:13)
[2016-12-25] MEDS: D5W/LR 1,000 ML IV SCH ×3 (01:04→18:37)
[2016-12-25 03:15] VITALS: BP 122/76
[2016-12-25 06:00] VITALS: BP 119/67
[2016-12-25 07:08] LABS: MEAN CORPUSCULAR HEMOGLOBIN 29.3 pg (27.0-33.0); MEAN CORPUSCULAR VOLUME 94.7 fl (80.0-96.0); RED CELL DISTRIBUTION WIDTH 13.5 % (11.5-14.5); WHITE BLOOD COUNT 8.6 K/mm3 (4.0-10.0)
[2016-12-25 07:33] LABS: ANION GAP 5 MEQ/L (8-16); BLOOD UREA NITROGEN 15 MG/DL (7-18); CALCIUM LEVEL 8.1 MG/DL (8.8-10.2); CARBON DIOXIDE LEVEL 32 MEQ/L (21-32); CHLORIDE LEVEL 102 MEQ/L (98-107); GLOMERULAR FILTRATION RATE > 60.0 (>42); GLUCOSE, FASTING 106 MG/DL (83-110); POTASSIUM SERUM 4.4 MEQ/L (3.5-5.1); SODIUM LEVEL 139 MEQ/L (136-145)
[2016-12-25] MEDS: IPRATROPIUM 0.5MG/ALBUTEROL 2.5MG INH SOL UD 3ML (DUONEB)(J7620) NEB SCH ×3 (07:35→19:59)
[2016-12-25] MEDS: PANTOPRAZOLE 40MG INJ (PROTONIX) (C9113) IV SCH (10:12)
[2016-12-25] MEDS: ALVIMOPAN 12 MG CAPSULE (ENTEREG) PO SCH ×2 (10:13→21:54)
[2016-12-25] MEDS: CHLORTHALIDONE 25 MG TAB PO SCH (10:13)
[2016-12-25] MEDS: VALSARTAN 80 MG TAB (DIOVAN) PO SCH (10:13)
[2016-12-25 11:51] VITALS: O2SAT 97
[2016-12-25] MEDS ORDERED: ERTAPENEM SODIUM 1 GM in NS MINI-BAG PLUS 50 ML IV SCH (14:00)
[2016-12-25] MEDS: MORPHINE 1MG/ML IN 0.9% NACL 100ML IV BAG IV PRN (18:03)
[2016-12-25 19:58] VITALS: O2SAT 97
[2016-12-25] MEDS: PHENYTOIN 100 MG/4 ML SUSP UDC PO SCH (21:55)
[2016-12-25 22:00] VITALS: BP 126/73
[2016-12-25 22:22] VITALS: O2SAT 93
[2016-12-26] MEDS: IPRATROPIUM 0.5MG/ALBUTEROL 2.5MG INH SOL UD 3ML (DUONEB)(J7620) NEB SCH ×4 (01:52→20:10)
[2016-12-26 02:00] VITALS: BP 122/73
[2016-12-26] MEDS: D5W/LR 1,000 ML IV SCH ×2 (02:12→10:47)
[2016-12-26 06:00] VITALS: BP 122/75
[2016-12-26 07:29] LABS: MEAN CORPUSCULAR HEMOGLOBIN 29.6 pg (27.0-33.0); MEAN CORPUSCULAR HGB CONC 31.4 g/dl (32.0-36.5); MEAN CORPUSCULAR VOLUME 94.4 fl (80.0-96.0); RED CELL DISTRIBUTION WIDTH 13.7 % (11.5-14.5); WHITE BLOOD COUNT 10.8 K/mm3 (4.0-10.0)
[2016-12-26 07:45] LABS: ANION GAP 8 MEQ/L (8-16); BLOOD UREA NITROGEN 10 MG/DL (7-18); CALCIUM LEVEL 7.9 MG/DL (8.8-10.2); CARBON DIOXIDE LEVEL 31 MEQ/L (21-32); CHLORIDE LEVEL 101 MEQ/L (98-107); CREATININE FOR GFR 0.78 MG/DL (0.70-1.30); GLOMERULAR FILTRATION RATE > 60.0 (>42); GLUCOSE, FASTING 111 MG/DL (83-110); POTASSIUM SERUM 4.1 MEQ/L (3.5-5.1); SODIUM LEVEL 140 MEQ/L (136-145)
[2016-12-26] MEDS: ALVIMOPAN 12 MG CAPSULE (ENTEREG) PO SCH ×2 (09:21→21:25)
[2016-12-26] MEDS: CHLORTHALIDONE 25 MG TAB PO SCH (09:21)
[2016-12-26] MEDS: PANTOPRAZOLE 40MG INJ (PROTONIX) (C9113) IV SCH (09:21)
[2016-12-26] MEDS: VALSARTAN 80 MG TAB (DIOVAN) PO SCH (09:21)
--- NOTE | 2016-12-26 13:38 | IPN ---
DATE: 12/26/2016 The patient is status post right colectomy for a locally advanced right colon cancer. We performed this laparoscopically and overall he states that his pain is much better today. He is postoperative day #2 from this operation. Overall, he was able to get himself up to the bedside without too much difficulty, although feels that he is still too weak to be getting up to the use the commode/bedside urinal frequently and would like the catheter kept in place. I feel that is probably a reasonable thing for another 24 hours and discontinue it tomorrow morning. Otherwise, his abdomen is soft, nontender, nondistended and his incision is intact with richardson intact without any erythema, drainage or discharge. IMPRESSION AND PLAN: The patient is status post a right colectomy. 1. Gastrointestinal (GI): The patient has had no nausea. He has not had any vomiting. No abdominal distention. From my standpoint, it is reasonable to start him on a clear liquid diet. 2. Fluid status. Good urine output at this point with his IV running at 125. Will decrease that IV rate so that it is KVO for his [employer] in place. 3. His pathology is currently pending at this time. Will discuss the results once we find the results of this. 4. Will plan on getting the Simpson out tomorrow morning. I do feel that given the significant diuresis that he is having at this time it would be more reasonable to take it out tomorrow morning.
[2016-12-26 14:00] VITALS: BP 132/71
[2016-12-26] MEDS: MORPHINE 1MG/ML IN 0.9% NACL 100ML IV BAG IV PRN (16:51)
[2016-12-26 20:08] VITALS: O2SAT 95
[2016-12-26] MEDS: PHENYTOIN 100 MG/4 ML SUSP UDC PO SCH (21:25)
[2016-12-26 22:00] VITALS: BP 122/76
[2016-12-27] MEDS: IPRATROPIUM 0.5MG/ALBUTEROL 2.5MG INH SOL UD 3ML (DUONEB)(J7620) NEB SCH ×4 (01:41→20:27)
[2016-12-27 06:00] VITALS: BP 128/58
[2016-12-27 06:32] LABS: MEAN CORPUSCULAR HGB CONC 31.8 g/dl (32.0-36.5); MEAN CORPUSCULAR VOLUME 94.3 fl (80.0-96.0); RED CELL DISTRIBUTION WIDTH 13.6 % (11.5-14.5); WHITE BLOOD COUNT 10.4 K/mm3 (4.0-10.0)
[2016-12-27 06:46] LABS: ANION GAP 5 MEQ/L (8-16); BLOOD UREA NITROGEN 8 MG/DL (7-18); CARBON DIOXIDE LEVEL 32 MEQ/L (21-32); CHLORIDE LEVEL 101 MEQ/L (98-107); GLOMERULAR FILTRATION RATE > 60.0 (>42); GLUCOSE, FASTING 90 MG/DL (83-110); POTASSIUM SERUM 3.9 MEQ/L (3.5-5.1); SODIUM LEVEL 138 MEQ/L (136-145)
[2016-12-27] MEDS: D5W/LR 1,000 ML IV SCH (08:44)
[2016-12-27] MEDS: VALSARTAN 80 MG TAB (DIOVAN) PO SCH (09:45)
[2016-12-27] MEDS ORDERED: PERCOCET 5MG/325MG TAB PO PRN (09:45)
[2016-12-27] MEDS: PANTOPRAZOLE 40MG INJ (PROTONIX) (C9113) IV SCH (09:46)
[2016-12-27] MEDS: CHLORTHALIDONE 25 MG TAB PO SCH (09:46)
[2016-12-27] MEDS: ALVIMOPAN 12 MG CAPSULE (ENTEREG) PO SCH ×2 (09:46→20:15)
[2016-12-27] MEDS: PERCOCET 5MG/325MG TAB PO PRN ×2 (13:02→20:15)
[2016-12-27] MEDS: PHENYTOIN 100 MG/4 ML SUSP UDC PO SCH (20:15)
[2016-12-27 20:35] VITALS: O2SAT 94
[2016-12-27 22:00] VITALS: BP 105/53
[2016-12-28] MEDS: PERCOCET 5MG/325MG TAB PO PRN ×4 (00:44→17:36)
[2016-12-28] MEDS: IPRATROPIUM 0.5MG/ALBUTEROL 2.5MG INH SOL UD 3ML (DUONEB)(J7620) NEB SCH ×4 (01:16→19:55)
[2016-12-28 06:00] VITALS: BP 128/79
[2016-12-28 06:33] LABS: MEAN CORPUSCULAR HEMOGLOBIN 29.2 pg (27.0-33.0); MEAN CORPUSCULAR HGB CONC 31.3 g/dl (32.0-36.5); MEAN CORPUSCULAR VOLUME 93.5 fl (80.0-96.0); RED CELL DISTRIBUTION WIDTH 13.6 % (11.5-14.5); WHITE BLOOD COUNT 15.1 K/mm3 (4.0-10.0)
[2016-12-28 06:41] LABS: ANION GAP 8 MEQ/L (8-16); BLOOD UREA NITROGEN 8 MG/DL (7-18); CALCIUM LEVEL 8.7 MG/DL (8.8-10.2); CARBON DIOXIDE LEVEL 28 MEQ/L (21-32); CHLORIDE LEVEL 102 MEQ/L (98-107); GLOMERULAR FILTRATION RATE > 60.0 (>42); GLUCOSE, FASTING 97 MG/DL (83-110); POTASSIUM SERUM 3.9 MEQ/L (3.5-5.1); SODIUM LEVEL 138 MEQ/L (136-145)
[2016-12-28] MEDS: D5W/LR 1,000 ML IV SCH (08:44)
[2016-12-28] MEDS: CHLORTHALIDONE 25 MG TAB PO SCH (10:35)
[2016-12-28] MEDS: VALSARTAN 80 MG TAB (DIOVAN) PO SCH (10:35)
[2016-12-28] MEDS: ALVIMOPAN 12 MG CAPSULE (ENTEREG) PO SCH ×2 (10:35→20:37)
[2016-12-28] MEDS: PANTOPRAZOLE 40MG INJ (PROTONIX) (C9113) IV SCH (10:36)
[2016-12-28] MEDS: PHENYTOIN 100 MG/4 ML SUSP UDC PO SCH (20:33)
[2016-12-28] MEDS: guaiFENesin ER 600 MG TAB PO SCH (20:37)
[2016-12-28 22:00] VITALS: BP 133/72
[2016-12-29] MEDS: IPRATROPIUM 0.5MG/ALBUTEROL 2.5MG INH SOL UD 3ML (DUONEB)(J7620) NEB SCH ×4 (01:12→20:05)
[2016-12-29 02:00] VITALS: BP 139/74
[2016-12-29 06:00] VITALS: BP 129/85
[2016-12-29 06:30] LABS: MEAN CORPUSCULAR HEMOGLOBIN 29.1 pg (27.0-33.0); MEAN CORPUSCULAR VOLUME 93.7 fl (80.0-96.0); RED CELL DISTRIBUTION WIDTH 13.3 % (11.5-14.5); WHITE BLOOD COUNT 14.9 K/mm3 (4.0-10.0)
[2016-12-29 06:44] LABS: ANION GAP 7 MEQ/L (8-16); BLOOD UREA NITROGEN 12 MG/DL (7-18); CALCIUM LEVEL 8.7 MG/DL (8.8-10.2); CARBON DIOXIDE LEVEL 31 MEQ/L (21-32); CHLORIDE LEVEL 102 MEQ/L (98-107); CREATININE FOR GFR 0.99 MG/DL (0.70-1.30); GLOMERULAR FILTRATION RATE > 60.0 (>42); GLUCOSE, FASTING 94 MG/DL (83-110); POTASSIUM SERUM 3.9 MEQ/L (3.5-5.1); SODIUM LEVEL 140 MEQ/L (136-145)
--- NOTE | 2016-12-29 09:49 | REP ---
Clinical: Cough. Technique: PA . Comparison: 11/08/2016. Findings: Linear plate-like atelectasis noted in the bilateral mid lung zones. No obvious effusion or pneumothorax. Mediastinum and cardiac silhouette normal. Impression: Plate-like atelectasis noted in the bilateral mid lung zones extending to the hilum. Signed by Johnathan Cooper MD 12/29/2016 09:40 A
[2016-12-29] MEDS: VALSARTAN 80 MG TAB (DIOVAN) PO SCH (10:05)
[2016-12-29] MEDS: ALVIMOPAN 12 MG CAPSULE (ENTEREG) PO SCH ×2 (10:05→21:14)
[2016-12-29] MEDS: CHLORTHALIDONE 25 MG TAB PO SCH (10:06)
[2016-12-29] MEDS: guaiFENesin ER 600 MG TAB PO SCH ×2 (10:06→21:14)
[2016-12-29] MEDS: PANTOPRAZOLE 40MG INJ (PROTONIX) (C9113) IV SCH (10:08)
[2016-12-29 16:00] VITALS: BP 130/69
[2016-12-29] MEDS: PHENYTOIN 100 MG/4 ML SUSP UDC PO SCH (21:14)
[2016-12-29 22:00] VITALS: BP 151/80
[2016-12-30] MEDS: IPRATROPIUM 0.5MG/ALBUTEROL 2.5MG INH SOL UD 3ML (DUONEB)(J7620) NEB SCH ×2 (01:45→07:28)
[2016-12-30 02:00] VITALS: BP 151/80
[2016-12-30 06:00] VITALS: BP 129/79
[2016-12-30 06:22] LABS: MEAN CORPUSCULAR HEMOGLOBIN 28.8 pg (27.0-33.0); MEAN CORPUSCULAR HGB CONC 30.9 g/dl (32.0-36.5); MEAN CORPUSCULAR VOLUME 93.3 fl (80.0-96.0); RED CELL DISTRIBUTION WIDTH 13.3 % (11.5-14.5); WHITE BLOOD COUNT 10.2 K/mm3 (4.0-10.0)
[2016-12-30 06:32] LABS: ANION GAP 8 MEQ/L (8-16); BLOOD UREA NITROGEN 12 MG/DL (7-18); CALCIUM LEVEL 8.2 MG/DL (8.8-10.2); CARBON DIOXIDE LEVEL 29 MEQ/L (21-32); CHLORIDE LEVEL 102 MEQ/L (98-107); CREATININE FOR GFR 0.89 MG/DL (0.70-1.30); GLOMERULAR FILTRATION RATE > 60.0 (>42); GLUCOSE, FASTING 89 MG/DL (83-110); POTASSIUM SERUM 3.3 MEQ/L (3.5-5.1); SODIUM LEVEL 139 MEQ/L (136-145)
[2016-12-30] MEDS: PANTOPRAZOLE 40MG INJ (PROTONIX) (C9113) IV SCH (08:59)
[2016-12-30] MEDS: CHLORTHALIDONE 25 MG TAB PO SCH (08:59)
[2016-12-30] MEDS: ALVIMOPAN 12 MG CAPSULE (ENTEREG) PO SCH (08:59)
[2016-12-30] MEDS: guaiFENesin ER 600 MG TAB PO SCH (08:59)
[2016-12-30 09:00] VITALS: BP 129/79
[2016-12-30] MEDS: VALSARTAN 80 MG TAB (DIOVAN) PO SCH (09:00)
--- NOTE | 2017-01-12 22:05 | DSES ---
DATE OF ADMISSION: 12/24/2016 DATE OF DISCHARGE: 12/30/2016 PRINCIPAL DIAGNOSIS: Adenocarcinoma of the right colon with a T3 N0 M0 pathology. ASSOCIATED DIAGNOSES: 1. History of atrial fibrillation. 2. History of hypertension. 3. History of seizures. 4. History of iron deficiency anemia. 5. History of bilateral knee surgery. 6. History of gastric bypass surgery. 7. History of colonoscopy. PROCEDURES PERFORMED: Laparoscopic right colectomy on 12/24/2016. BRIEF HOSPITAL COURSE SUMMARY: The patient was admitted with the above diagnosis of adenocarcinoma of the right colon diagnosed on colonoscopy. He was taken to the operating room where he underwent laparoscopic right colectomy. The right colonic mass was a very large colonic mass. Thus, the laparoscopic incision was slightly larger than typical but in any case, a laparoscopic colectomy was performed. The patient tolerated this procedure quite well. Postoperatively started to mobilize himself, had good pain relief with minimal oral pain medication, was increasing his activity over time, and eventually he was started on a clear liquid diet and advanced to a regular diet. He was discharged home on his usual medications which include Coumadin, valsartan, Dilantin, phentermine, multivitamins, probiotics, glucosamine, iron, vitamin D, chlorthalidone, calcium, biotin, ascorbic acid, ammonium lactate and Tylenol. The patient was instructed to followup with me in one week for suture removal and to discuss oncology referral. The patient was also instructed to slowly progress his activity as tolerated and wound care instructions were discussed with the patient.
--- NOTE | 2017-01-13 05:53 | RO ---
DATE OF PROCEDURE: 12/24/2016 PREOPERATIVE DIAGNOSIS: Right colon cancer. POSTOPERATIVE DIAGNOSIS: Right colon cancer. PROCEDURE: Laparoscopic right colectomy. SURGEON: Andrés Funez MD PANTOGRAPH II ENGRAVER: Dr. Hebert (Dr. Hebert provided retraction assistance with the anastomosis and abdominal wall closure). ANESTHESIA: General endotracheal anesthesia. ESTIMATED BLOOD LOSS: Minimal. FLUIDS: Crystalloid. DESCRIPTION OF PROCEDURE: The patient was taken operating room and was given general anesthesia. After adequate anesthesia and preoperative antibiotics were given, the patient was prepped and draped in the usual sterile fashion. A supraumbilical incision was made with skin knife. Blunt dissection was carried down to fascia. Fascia was grasped with Candace clamps, elevated and grasped, and a Veress needle placed into the abdominal cavity, insufflated to 15 mm of pressure. A dilating 10 mm trocar was placed at the umbilicus at this time and under direct visualization suprapubic and left lower quadrant 5 mm trocars were placed. Next, an additional right-sided 5 mm trocar was placed on the lateral border of the rectus muscle and this caught the edge of the previous hematoma that was in this area and some of the hematoma was decompressed in the rectus muscle at this time. In any case, after this was decompressed, no other significant abnormalities were appreciated. The patient was placed in a Trendelenburg position. The cecum was grasped, retracted medially. The white line a Toldt was taken down with Harmonic scalpel laterally all the way up to the hepatic flexure and then coming around the hepatic flexure up to the avascular plane over the duodenum itself. Next, the omentum was grasped in the mid transverse colon elevated and the omentum was taken off the avascular plane and mobilized up towards the hepatic flexure once again revealing a good plane and mobilizing the hepatic flexure off the duodenum and the C loop of the duodenum. Once this was able to be mobilized enough and continued mobilization inferiorly and medially to allow the mesentery of the colon to be taken down off the Gerota's fascia and dissection continued significantly more at this point. Eventually after all this was mobilized quite nicely and the splenic flexure was mobilized, the terminal ileum was also mobilized to some extent. First, the peritoneum was taken down in this area. The appendiceal area, mesentery had been previously mobilized. Next, using the Harmonic scalpel, the cecum was elevated. The terminal ileum was elevated and the mesentery of the small bowel was partially taken down with Harmonic scalpel. This continued down to the ileal colic vessels, but what was apparent to me was that the patient had such a large right colonic mass that the majority of this could be performed through laparoscopically, but knowing this mass size itself that the fascial defect will need to be large enough to accommodate this mass. Thus, the rest of the procedure was performed open. Thus, after laparoscopically mobilizing the colon as typical in a laparoscopic colectomy, a slightly larger than normal laparoscopic incision was made at the umbilicus to allow for this large mass to be taken out. The incision was made with skin knife. Electrocautery was used cut through dermis, underlying subcutaneous tissue and the cecum was able to be mobilized through this fascial defect. Once the lesion was mobilized, the terminal ileum had a great deal of the length on it. This was transected using a KYLE stapler. The mesentery of the ileocolic small vessel, small bowel side, was taken down with a vascular echelon load. The hepatic flexure/transverse colon was transected using a KYLE load as well and the mesentery of the right colon was taken with Harmonic scalpel through the loose areolar tissue down to the level of the ileocolic vessel. Once I was able take this at the base of the ileocolic vessel, this was transected using a vascular echelon load as well. The lesion was removed in its entirety at this time and a [id number] anastomosis with a KYLE 75 load, and then the enterotomy closed with a 75 load as well. This was returned to the abdominal cavity and copiously irrigated until clear. The crotch of the anastomosis as well as anterior surface was imbricated using #3-0 Vicryl. No other significant abnormalities were appreciated along this site. The incision then was closed with running #1 Vicryl and richardson used to approximate the skin. All incisions were closed with richardson and a dry sterile dressing. The patient was awakened, extubated, brought to the recovery room awake, alert and hemodynamically stable. Sponge and needle counts correct times two.
== END 2016-12-30 10:55 | disposition home or self-care (01) | DRG 330 ==
LOC: M OR 11:35 → M MS5PR 18:40
PROVIDERS: ADMIT Surgery; ATTEND Surgery
PROC: 0DTK4ZZ Resection of Ascending Colon, Percutaneous Endoscopic Approach (ICD-10-PCS; principal; 2016-12-24 13:00)
DX: C18.2 Malignant neoplasm of ascending colon (principal); Z68.41 Body mass index [BMI] 40.0-44.9, adult; E66.01 Morbid (severe) obesity due to excess calories; I48.91 Unspecified atrial fibrillation; I10 Essential (primary) hypertension; Z79.899 Other long term (current) drug therapy

== ENCOUNTER → 2017-01-20 | Outpatient (REF) | payer OTHER | LOC: M LAB REF 14:15 | PROVIDERS: ATTEND Internal Medicine Medical Oncology | DX: C18.9 Malignant neoplasm of colon, unspecified (principal) ==

== ENCOUNTER → 2017-02-14 | Outpatient (REF) | payer OTHER ==
[~2017-02-14] MED LIST changes: +AMMO12LO EXT; -BENZ200C44 PO; +BENZ200C53 PO; +CAPE1TAB2 PO; -CELE-19 PO; +CELE1CAP4 PO; -COUM2.5T11 PO; +COUM2.5T17 PO; +PERC5TAB12 PO; -PERC5TAB6 PO; +PHEN15CA PO; -PHEN15CA58 PO
== END ==
LOC: M LAB REF 09:16
PROVIDERS: ATTEND Internal Medicine Medical Oncology
DX: C18.9 Malignant neoplasm of colon, unspecified (principal)

== ENCOUNTER → 2017-03-17 | Outpatient (REF) | payer OTHER ==
[2017-03-17 18:31] LABS: INR 7.29
== END ==
LOC: M LAB REF 17:40
PROVIDERS: ATTEND Internal Medicine Medical Oncology
DX: C18.9 Malignant neoplasm of colon, unspecified (principal)

== ENCOUNTER 2017-03-19 10:05 | Inpatient (IN) | payer OTHER, MEDICARE ==
[~2017-03-19] VITALS: Ht 182.9 cm; Wt 137.1 kg
[~2017-03-19 10:05] MED LIST changes: -AMMO12LO EXT; -CAPE1TAB2 PO
[2017-03-19] MEDS ORDERED: CAPE1TAB2 PO (10:20)
[2017-03-19] MEDS ORDERED: NS 1,000 ML IV ONE ×3 (10:45→21:30)
[2017-03-19 11:08] LABS: ADD MANUAL DIFFER YES; DIFF SLIDE NUMBER 173; MEAN CORPUSCULAR HEMOGLOBIN 31.4 pg (27.0-33.0); MEAN CORPUSCULAR HGB CONC 33.8 g/dl (32.0-36.5); MEAN CORPUSCULAR VOLUME 92.9 fl (80.0-96.0); PLATELET COUNT, AUTOMATED 363 k/mm3 (150-450); RED CELL DISTRIBUTION WIDTH 14.9 % (11.5-14.5); WHITE BLOOD COUNT 4.8 K/mm3 (4.0-10.0)
[2017-03-19 11:28] LABS: ALBUMIN 2.8 GM/DL (3.2-5.2); ALBUMIN/GLOBULIN RATIO 0.67 (1.00-1.93); BILIRUBIN,DIRECT 0.3 MG/DL (0.0-0.2); BILIRUBIN,TOTAL 0.7 MG/DL (0.2-1.0); CALCIUM LEVEL 8.4 MG/DL (8.8-10.2); CREATININE FOR GFR 2.82 MG/DL (0.70-1.30); GLOMERULAR FILTRATION RATE 23.8 (>42); POTASSIUM SERUM 3.5 MEQ/L (3.5-5.1)
--- NOTE | 2017-03-19 13:26 | HPEPDOC ---
Medical History and Physical Date of Admission 03/19/17 History and Physical ATTENDING: Dr. Henriquez PCP: Dr Landry Oncologist Dr Mcelroy CC: diarrhea, weakness HPI: 71yoM with a past medical history significant for Stage II Colon Ca who began Chemotherapy as per Dr Mcelroy 03/04/17. Pt states he had chemo Friday03/17/17 and began to feel ill Friday evening. Pt states diarrhea Friday evening and all day Friday. Reduced po intake yesterday. Denies states had dry heaves, no vomiting. States persisted this AM and Pt felt weak and dizzy, therefore was directed to come to ED for evaluation. Denies any fevers, chills, YEUNG, CP, SOB, cough, palpitations, or changes in bladder habits. Upon presentation to the hospital the patient was found to have diarrhea/AMILCAR, thus the hospitalist team was consulted. PMHx: chronic A fib, on Coumadin as per PCP. HTN Fe def anemia Seizure disorder. Last seizure approx 5 years ago chronic venous stasis/H/O cellulitis LLE. Stage 2 Colon Ca. Following with Dr Mcelroy. TOBIN. CPAP PSHX: B/L TKA gastric bypass urethral dilatation x 2 colonoscopy 11/18. Dee Dee. Rt colectomy 12/18 Dee [place]. 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 FAMHX: Pt is adopted Children: Alive, dtr with MS ROS: As noted in HPI, otherwise 11pt ROS of systems reviewed and unremarkable. PE: GEN: 71yoM, appears stated age. Well-nourished, well developed. No acute distress. Alert and oriented x 3. Pleasant, interactive. HEENT: Normocephalic, atraumatic. Pupils are equal, round, and reactive to light. Extraocular movements are intact. No nystagmus appreciated. Sclera are nonicteric. Conjunctiva without injection. Nose midline. No facial asymmetry. Dry lips with cracking and dry mucous membranes. Dentition fair. Pharynx dry appearing. Neck supple, trachea midline. No lymphadenopathy or thyromegaly appreciated. CHEST: Irreg irreg rate and rhythm, +S1, +S2 tachycardic. LUNGS: Clear to auscultation bilaterally. No wheezes, rales, or rhonchi. Breathing appears symmetric and easy. Patient is speaking in full sentences. No accessory muscle use. ABD: Round, soft, non-tender, non-distended. +Bowel sounds throughout. No rebound or guarding. No costovertebral angle tenderness. EXT: Pulses 2+ bilaterally dorsalis pedis and radial. chronic venous stasis changes LEs. SKIN: No rashes. NEURO: Alert and oriented x 3. Cranial nerves III-XII are intact. No focal deficits appreciated. AXR: pending UA pending GI panel pending. A&P: 71yoM with a past medical history significant for Stage II Colon Ca who began Chemotherapy as per Dr Mcelroy 03/04/17. Pt states he had chemo Friday03/17/17 and began to feel ill Friday evening. Pt states diarrhea Friday evening and all day Friday. Reduced po intake yesterday. Denies states had dry heaves, no vomiting. States persisted this AM and Pt felt weak and dizzy, therefore was directed to come to ED for evaluation. 1. The patient will be admitted to M/S for at least [address] Henriquez's service. Pt is discussed with Dr Amaya. 2. diarrhea/nausea/dehydration. Continue with IVF at 125cc/hr. IV Zofran as needed. Clear liquids. AXR pending. BC/UC pending. GI panel pending. 3. AMILCAR. SCr 2.82. S/P 1 liter bolus IVF in ED. Continue with IVF 125cc/hr. 4. Elevated AST. Recheck CMP in AM. 5. Stage II Colon ca. S/P Chemotherapy Friday. Follows with Dr Mcelroy. 6. Chronic A fib. HOLD Coumadin for now. INR requested, INR 03/17/17 7.29. Serial CIP/trop. 7. HTN. HOLD Chlorthalidone/Valsartan. BP 123/66. 8. Fe def anemia. [id number]. Cont Fe supplement. Recheck CBC in Am. 9. TOBIN. CPAP 10. Seizure disorder. Continue Phenytoin, add Dilantin level to admission labs and AM. MED REC PENDING AT THIS TIME DVT prophylaxis. HOLD Coumadin for now. INR requested, INR 03/17/17 7.29. The patient states he has a DNR, copy is requested. Addendum: Patient has had elevated heart rate. Seems to be afib with RVR. Not particularly responsive to ivf. Will give more ivf as he has large quantities of stool. Trial of beta manolo. Awaiting stool studies- will give vanco/ flaygl. Patient has filled out a new molst form. Further Addendum: Patient responsive to beta manolo, but heart rate sbp<100. Will give further fluid, and add digoxin. Case discussed on several occasions tonight. Signing out to night team. Vital Signs Vital Signs Date Time Temp Pulse Resp B/P (MAP) Pulse Ox O2 Delivery O2 Flow Rate FiO2 03/19/17 12:02 123/66 (85) 03/19/17 10:06 98.6 62 18 97 Room Air Laboratory Data Labs 24H Laboratory Tests 2 03/19/17 10:48: Neutrophils 75, Lymphocytes (Manual) 24, Monocytes (Manual) 1, Platelet Estimate NORMAL, Red Blood Cell Morphology NORMAL, Anion Gap 18H, Glomerular Filtration Rate 23.8L, Calcium Level 8.4L, Aspartate Amino Transf (AST/SGOT) 39H , Alanine Aminotransferase (ALT/SGPT) 45, Alkaline Phosphatase 160H, Total Bilirubin 0.7, Direct Bilirubin 0.3H, Total Protein 7.0, Albumin 2.8L, Albumin/ Globulin Ratio 0.67L, Lipase 152 CBC/BMP Laboratory Tests 03/19/17 10:48 Red Blood Count 5.49, Mean Corpuscular Volume 92.9, Mean Corpuscular Hemoglobin 31.4, Mean Corpuscular Hemoglobin Concent 33.8, Red Cell Distribution Width 14.9 H Home Medications Scheduled (Calcium Citrate + D3 Maxi 315-250 mg-Unit) 1 Tab Tab, 2 TAB PO BID (Phentermine HCl) 15 Mg Cap, 15 MG PO DAILY (Ammonium Lactate) 12 % Lot, 1 DOSE EXT BID TO FEET Ascorbic Acid (Ascorbic Acid) 500 Mg Tab, 1,000 MG PO DAILY Biotin (Vitamin H) (Biotin 5000) 5 Mg Cap, 5 MG PO DAILY Capecitabine (Capecitabine) 500 Mg Tab, 3,000 MG PO BID Chlorthalidone (Chlorthalidone) 25 Mg Tab, 25 MG PO DAILY Cholecalciferol (Vitamin D3) 10,000 Unit Tab, 10,000 UNIT PO Q2D Ferrous Sulfate (Ferrous Sulfate) 325 Mg Tab, 325 MG PO DAILY Lactobacillus Acidophilus (Probiotic) 1 Cap Cap, 1 CAP PO DAILY Multivitamins *[facility] STOCKED* (Thera M Plus *[facility] STOCKED*) 1 Tab Tab, 2 TAB PO DAILY Phenytoin (Phenytoin) 125 Mg/5 Ml Michelle, 250 MG PO QAM Phenytoin (Phenytoin) 125 Mg/5 Ml Michelle, 375 MG PO QHS Valsartan (Valsartan) 80 Mg Tab, 40 MG PO DAILY Warfarin Sod (Warfarin Sodium) 5 Mg Tab, 5 MG PO DAILY Scheduled PRN Acetaminophen (Tylenol) 325 Mg Tab, 650 MG PO Q4H PRN for PAIN / FEVER Allergies Coded Allergies: Eggs or Egg-derived Products (Verified Allergy, Intermediate, HIVES, ) NUTS (Verified Allergy, Intermediate, HIVES, 05/12/10) Concepción Arreguin Mar 19, 2017 13:26 DORIE AMAYA MD Mar 19, 2017 20:48
[2017-03-19] MEDS ORDERED: ACETAMINOPHEN TAB 650MG DOSE (2X325MG) PO PRN (13:30)
[2017-03-19] MEDS ORDERED: ONDANSETRON 4MG/2ML VIAL (J2405) IV PRN (13:30)
[2017-03-19] MEDS ORDERED: AMMO12LO EXT (13:42)
--- NOTE | 2017-03-19 13:42 | REP ---
ABDOMINAL SERIES: Four views. HISTORY: Abdominal pain. FINDINGS: Upright chest radiograph shows no evidence of infiltrate or free subdiaphragmatic air. Heart is not enlarged. The aorta is calcific and tortuous. Lung quiroz are clear. Supine and upright views of the abdomen demonstrate a few loops of air-filled small bowel scattered in the right and left central abdomen. There are air-fluid levels on the upright radiograph. There is a paucity of colonic gas. There are advanced degenerative disc changes in the lumbar spine. There are clips in the right upper quadrant. IMPRESSION: Question small bowel obstruction. Borderline caliber small bowel loops with paucity of distal gas. Air fluid levels. No evidence of free air. Clips right upper quadrant. Signed by Alexsander Lawton MD 03/19/2017 03:57 P
[2017-03-19 14:39] LABS: INR 11.66
[2017-03-19 14:54] VITALS: BP 130/64
[2017-03-19] MEDS: NS 1,000 ML IV SCH ×2 (15:04→21:18)
[2017-03-19] MEDS ORDERED: PHYTONADIONE 10MG/ML INJECTION (J3430) SC ONE (15:15)
[2017-03-19 19:13] LABS: MAGNESIUM LEVEL 2.4 MG/DL (1.8-2.4)
[2017-03-19 20:00] VITALS: BP 115/84
[2017-03-19] MEDS ORDERED: METOPROLOL 5 MG/5 ML VIAL IV SCH (20:45)
[2017-03-19] MEDS ORDERED: METOPROLOL 5 MG/5 ML VIAL As Ordered ONE (20:47)
[2017-03-19 20:58] VITALS: BP 120/90
[2017-03-19] MEDS: metroNIDAZOLE 500 MG in APPROPRIATE DILUENT 1 EA IV SCH (20:58)
[2017-03-19] MEDS: PHENYTOIN 100 MG/4 ML SUSP UDC PO SCH (21:00)
[2017-03-19] MEDS ORDERED: SODIUM CHLORIDE 0.9% 1000 ML IV ONE ×2 (21:00→23:30)
[2017-03-19] MEDS ORDERED: DIGOXIN INJ 0.5 MG/2 ML AMP (J1160) IV ONE (21:30)
[2017-03-19] MEDS: VANCOMYCIN ORAL SOL 250MG/5ML ORAL SYRINGE PO SCH ×2 (21:50→22:22)
[2017-03-19 22:00] VITALS: BP 90/55
[2017-03-19 22:11] LABS: ANION GAP 16 MEQ/L (8-16); BLOOD UREA NITROGEN 71 MG/DL (7-18); CARBON DIOXIDE LEVEL 12 MEQ/L (21-32); CHLORIDE LEVEL 107 MEQ/L (98-107); GLOMERULAR FILTRATION RATE 19.8 (>42); GLUCOSE, FASTING 168 MG/DL (83-110); POTASSIUM SERUM 3.7 MEQ/L (3.5-5.1); SODIUM LEVEL 135 MEQ/L (136-145)
[2017-03-19 22:28] LABS: INR 12.45
[2017-03-19 22:51] LABS: ABG BASE EXCESS -14.5 (-2.0-2.0); ABG STANDARD HCO3 13.7 MEQ/L (22.0-26.0); ABG TOTAL CO2 9.6 MEQ/L (23.0-31.0); ABG pH (ARTERIAL) 7.305 UNITS (7.350-7.450)
[2017-03-19 22:53] LABS: ABG PARTIAL PRESSURE CO2 18.5 mmHg (35.0-45.0)
[2017-03-19 23:59] VITALS: BP 94/62
[2017-03-20] VITALS (24 sets, daily range): BP systolic 52–137; BP diastolic 36–71
[2017-03-20] MEDS ORDERED: DIGOXIN INJ 0.5 MG/2 ML AMP (J1160) IV STA (00:20)
--- NOTE | 2017-03-20 00:31 | IPNPDOC ---
Text Note Date of Service The patient was seen on 03/20/17. NOTE Dr. Amaya updated evening resident and attending on patient's situation before he was off the shift. Patient decompensated once Dr. Amaya left and he was becoming confused and very drowsy even on home CPAP. Patient renal function was worsening. HR was in 150s despite of beta manolo and digoxin 0.25 mg. Considering to order another digoxin 0.25 mg. We also added Zosyn for empiric coverage. Patient's family was contacted, patient's would like to talk to her son to decide if they would like pursuit aggressive management. Patient' BP is steadily declining to SBP of 90s, the next step would be put him on pressors and transfer to ICU. Another option would be comfort care. Patient's skin was already molded since the afternoon. His prognosis is extremely poor at this time and it was conveyed to patient's family. Patient was discussed with attending Dr. Jain. VS,Clarisa, I+O VS, Clarisa, I+O Laboratory Tests 03/19/17 10:48 Red Blood Count 5.49, Mean Corpuscular Volume 92.9, Mean Corpuscular Hemoglobin 31.4, Mean Corpuscular Hemoglobin Concent 33.8, Red Cell Distribution Width 14.9 H 03/19/17 21:28 Calcium Level 8.0 L, Total Creatine Kinase 37 L Vital Signs Date Time Temp Pulse Resp B/P (MAP) Pulse Ox O2 Delivery O2 Flow Rate FiO2 03/19/17 22:32 120 03/19/17 20:58 120/90 03/19/17 20:00 98.9 20 97 Room Air I&O- Last 24 Hours up to 6 AM 03/20/17 05:59 Intake Total 1000 ml Output Total 25 ml Balance 975 ml GME ATTESTATION GME ATTESTATION My preceptor for this patient encounter was physically present in the building during the encounter and was fully available. As needed, all aspects of the patient interview, examination, medical decision making process, and medical care plan development were reviewed and approved by the preceptor. Preceptor is aware and concurs with the plan as stated in the body of this note and will attest to such by his/her cosignature. EMERALD ABEL DO Mar 20, 2017 00:30
[2017-03-20] MEDS: PIPERACILLIN/TAZOBACTAM SOD 2.25 GM in D5W MINI-BAG PLUS 50 ML IV SCH ×2 (00:45→09:03)
[2017-03-20] MEDS ORDERED: MORPHINE 2 MG/ML 1ML SYRINGE As Ordered ONE (01:27)
[2017-03-20] MEDS: MORPHINE 2 MG/ML 1ML SYRINGE IV PRN ×2 (01:30→10:09)
[2017-03-20] MEDS: NS 1,000 ML IV SCH ×4 (01:44→16:43)
--- NOTE | 2017-03-20 02:36 | IPNPDOC ---
Text Note Date of Service The patient was seen on 03/20/17. NOTE Patient's arrived with several other family members. After a thorough discussion about patient's prognosis and what patient would want. Patient's family decided not to pursuit aggressive management, it means they don't want central line or pressor and continue current medical management right now. Patient's is considering make patient comfort measure only if patient doesn 't improve in the morning. Will continue IVF and started patient on 2 mg IV morphine q 6 hours prn per patient's family's request to ease patient's discomfort right now. Patient has been discussed with attending Dr. Jain. VS,Clarisa, I+O VS, Armene, I+O Laboratory Tests 03/19/17 10:48 Red Blood Count 5.49, Mean Corpuscular Volume 92.9, Mean Corpuscular Hemoglobin 31.4, Mean Corpuscular Hemoglobin Concent 33.8, Red Cell Distribution Width 14.9 H 03/19/17 21:28 Calcium Level 8.0 L, Total Creatine Kinase 37 L Vital Signs Date Time Temp Pulse Resp B/P (MAP) Pulse Ox O2 Delivery O2 Flow Rate FiO2 03/20/17 01:40 22 03/20/17 00:47 130 03/20/17 00:00 94/62 (73) 03/20/17 00:00 BIPAP/CPAP 03/19/17 23:59 98.7 96 I&O- Last 24 Hours up to 6 AM 03/20/17 06:00 Intake Total 5100 ml Output Total 25 ml Balance 5075 ml GME ATTESTATION GME ATTESTATION My preceptor for this patient encounter was physically present in the building during the encounter and was fully available. As needed, all aspects of the patient interview, examination, medical decision making process, and medical care plan development were reviewed and approved by the preceptor. Preceptor is aware and concurs with the plan as stated in the body of this note and will attest to such by his/her cosignature. EMERALD ABEL DO Mar 20, 2017 02:36
[2017-03-20 03:32] LABS: ADD MANUAL DIFFER YES; MEAN CORPUSCULAR HGB CONC 33.2 g/dl (32.0-36.5); MEAN CORPUSCULAR VOLUME 96.2 fl (80.0-96.0); PLATELET COUNT, AUTOMATED 280 k/mm3 (150-450); RED CELL DISTRIBUTION WIDTH 14.6 % (11.5-14.5); WHITE BLOOD COUNT 1.9 K/mm3 (4.0-10.0)
[2017-03-20 03:48] LABS: ALBUMIN 2.1 GM/DL (3.2-5.2); ALBUMIN/GLOBULIN RATIO 0.66 (1.00-1.93); BILIRUBIN,TOTAL 0.5 MG/DL (0.2-1.0); CALCIUM LEVEL 6.9 MG/DL (8.8-10.2); CREATININE FOR GFR 3.67 MG/DL (0.70-1.30); GLOMERULAR FILTRATION RATE 17.5 (>42); POTASSIUM SERUM 3.8 MEQ/L (3.5-5.1); TOTAL PROTEIN 5.3 GM/DL (6.4-8.2)
[2017-03-20] MEDS: metroNIDAZOLE 500 MG in APPROPRIATE DILUENT 1 EA IV SCH ×3 (04:05→21:04)
[2017-03-20 04:46] LABS: BANDS 12 % (< 11); NUCLEATED RED BLOOD CELL 1 % (0-0)
[2017-03-20] MEDS: VANCOMYCIN ORAL SOL 250MG/5ML ORAL SYRINGE PO SCH ×3 (05:29→17:41)
[2017-03-20 06:03] LABS: ADD MANUAL DIFFER YES; MEAN CORPUSCULAR HEMOGLOBIN 31.8 pg (27.0-33.0); MEAN CORPUSCULAR HGB CONC 33.9 g/dl (32.0-36.5); MEAN CORPUSCULAR VOLUME 93.5 fl (80.0-96.0); PLATELET COUNT, AUTOMATED 239 k/mm3 (150-450); RED CELL DISTRIBUTION WIDTH 14.7 % (11.5-14.5); WHITE BLOOD COUNT 1.3 K/mm3 (4.0-10.0)
[2017-03-20 06:06] LABS: INR 2.24
[2017-03-20 06:15] LABS: ALBUMIN 1.8 GM/DL (3.2-5.2); ALBUMIN/GLOBULIN RATIO 0.51 (1.00-1.93); BILIRUBIN,TOTAL 0.5 MG/DL (0.2-1.0); CALCIUM LEVEL 7.4 MG/DL (8.8-10.2); CREATININE FOR GFR 3.69 MG/DL (0.70-1.30); GLOMERULAR FILTRATION RATE 17.4 (>42); POTASSIUM SERUM 3.5 MEQ/L (3.5-5.1); TOTAL PROTEIN 5.3 GM/DL (6.4-8.2)
[2017-03-20 06:54] LABS: ANISOCYTOSIS 1+; BANDS 6 % (< 11); NUCLEATED RED BLOOD CELL 1 % (0-0); OVALOCYTES 1+
[2017-03-20 08:38] LABS: ABG BASE EXCESS -14.4 (-2.0-2.0); ABG HCO3 8.9 MEQ/L (22.0-26.0); ABG PARTIAL PRESSURE O2 158.3 mmHg (75.0-100.0); ABG STANDARD HCO3 13.8 MEQ/L (22.0-26.0); ABG TOTAL CO2 9.4 MEQ/L (23.0-31.0); ABG pH (ARTERIAL) 7.314 UNITS (7.350-7.450)
[2017-03-20 08:44] LABS: ABG PARTIAL PRESSURE CO2 17.9 mmHg (35.0-45.0)
[2017-03-20] MEDS ORDERED: PHENYTOIN 100 MG/4 ML SUSP UDC PO SCH (09:00)
[2017-03-20] MEDS: SODIUM BICARBONATE 150 MEQ in D5W 1,000 ML IV SCH ×2 (11:48→20:24)
[2017-03-20 13:08] LABS: MEAN CORPUSCULAR HEMOGLOBIN 31.2 pg (27.0-33.0); MEAN CORPUSCULAR HGB CONC 32.8 g/dl (32.0-36.5); RED CELL DISTRIBUTION WIDTH 14.8 % (11.5-14.5); WHITE BLOOD COUNT 4.1 K/mm3 (4.0-10.0)
[2017-03-20 13:15] LABS: INR 1.87
[2017-03-20 13:53] LABS: ALBUMIN 1.9 GM/DL (3.2-5.2); ALBUMIN/GLOBULIN RATIO 0.66 (1.00-1.93); ALKALINE PHOSPHATASE 90 U/L (45-117); ALT/SGPT 373 U/L (12-78); ANION GAP 19 MEQ/L (8-16); AST/SGOT 536 U/L (15-37); BILIRUBIN,TOTAL 0.5 MG/DL (0.2-1.0); BLOOD UREA NITROGEN 80 MG/DL (7-18); CALCIUM LEVEL 7.2 MG/DL (8.8-10.2); CARBON DIOXIDE LEVEL 11 MEQ/L (21-32); CHLORIDE LEVEL 109 MEQ/L (98-107); CREATININE FOR GFR 4.38 MG/DL (0.70-1.30); GLOMERULAR FILTRATION RATE 14.3 (>42); GLUCOSE, FASTING 136 MG/DL (83-110); SODIUM LEVEL 139 MEQ/L (136-145); TOTAL PROTEIN 4.8 GM/DL (6.4-8.2)
[2017-03-20] MEDS ORDERED: NS 1,000 ML IV ONE (16:15)
--- NOTE | 2017-03-20 16:17 | REP ---
Portable chest x-ray: Sitting AP view: History: Central line placement. Comparison study: 03/19/2017 at 10:56 a.m. Findings: A right internal jugular venous line is inserted with its tip in the expected location of the superior vena cava. There is no evidence of pneumothorax or hydrothorax. EKG electrodes are seen. There is linear fibrosis versus plate-like atelectasis again noted in the left inferior perihilar region. Left hemidiaphragm remains somewhat elevated. Impression: Right internal jugular central venous line in the expected location of the superior vena cava. No evidence of pneumothorax. Otherwise unchanged. Signed by Alexsander Lawton MD 03/20/2017 04:31 P
[2017-03-20 16:40] LABS: ABG BASE EXCESS -16.6 (-2.0-2.0); ABG PARTIAL PRESSURE O2 132.3 mmHg (75.0-100.0); ABG STANDARD HCO3 12.4 MEQ/L (22.0-26.0); ABG TOTAL CO2 8.6 MEQ/L (23.0-31.0); ABG pH (ARTERIAL) 7.253 UNITS (7.350-7.450)
[2017-03-20 16:41] LABS: MIXED BASE EXCESS -16.7; MIXED HCO3 9.6 MEQ/L; MIXED O2 SATURATION 72.3 %; MIXED PARTIAL PRESSURE CO2 25.7 mmHg; MIXED PARTIAL PRESSURE O2 42.8 mmHg; MIXED PH 7.192 UNITS; MIXED STANDARD HCO3 11.8 MEQ/L; MIXED TOTAL CO2 10.4 MEQ/L
[2017-03-20 16:43] LABS: ABG PARTIAL PRESSURE CO2 18.6 mmHg (35.0-45.0)
--- NOTE | 2017-03-20 19:20 | ECHO ---
DATE OF PROCEDURE: 03/20/2017 REFERRING PHYSICIAN: Dr. Henriquez INDICATIONS: Sepsis. HEIGHT: 183 cm WEIGHT: 137 kg DIMENSIONS: IVS: 1.2 LV: 6.1 LVPW: 1.2 LA: 4.0 Aorta: 4.0 FINDINGS: The study is of very limited technical quality. Only very limited information was obtained. The patient is in irregular heart rhythm, I assume atrial fibrillation with ventricular rate fluctuating between 90 and about 120 beats per minute. Left ventricle is mildly dilated and but overall there is relatively preserved left ventricle (LV) systolic function. I cannot reliably estimate left ventricle ejection fraction (LVEF) but I assume is going to be close to normal values. Right ventricle was poorly seen. Left atrium is at least mildly enlarged. Right atrium was not well visualized. Aortic valve is sclerotic but the visualization was very poor and I cannot comment on its structure. It does not appear that there is severe aortic stenosis. Mitral valve and tricuspid valve appear grossly normal. Pulmonic valve was not visualized. No pericardial effusion is noted. Inferior vena cava was not seen. Aortic root is borderline dilated at 4.0 cm. Aortic arch and abdominal aorta were not visualized. Doppler interrogation reveals no significant aortic stenosis but quality of the evaluation was poor and so this should not be considered reliable. There is no significant mitral and tricuspid valve disease. Evaluation of diastolic function is inconclusive due to underlying atrial fibrillation. CONCLUSIONS: 1. Study is of very limited technical quality. 2. Dilated left ventricle with mild left ventricular hypertrophy (LVH). I cannot reliably estimate LV systolic function, but there will not be worse than mild or at worst moderate LV systolic dysfunction and probably the systolic function is normal or near normal. 3. The right ventricle was not well seen. 4. Prominent aortic sclerosis but probably no significant stenosis. 5. No significant mitral and tricuspid valve disease. 6. Unable to estimate central venous pressure. COMMENTS: Subacute bacterial endocarditis (SBE) prophylaxis is not recommended. MTDD
[2017-03-20] MEDS: PHENYTOIN 100 MG/4 ML SUSP UDC PO SCH (21:05)
[2017-03-20 21:46] LABS: ALBUMIN 1.9 GM/DL (3.2-5.2); CALCIUM LEVEL 7.2 MG/DL (8.8-10.2); CREATININE FOR GFR 5.01 MG/DL (0.70-1.30); GLOMERULAR FILTRATION RATE 12.2 (>42); PHOSPHORUS LEVEL 4.4 MG/DL (2.5-4.9); POTASSIUM SERUM 4.3 MEQ/L (3.5-5.1)
--- NOTE | 2017-03-20 22:48 | IPN ---
DATE: 03/20/2017 SUBJECTIVE: Patient is seen and examined multiple times today and there were multiple discussions with the family members. During encounter, patient has been very tachypneic and also experiencing significant pain from the mid back. The patient continued to have pale and cold extremities. Patient also has frequent decompensation of blood pressure. Initially, patient had do not resuscitate/do not intubate signed during the admission in the emergency room. There are multiple family discussions among the family members and the family friend and the patient. They finally decided to revoke the do not resuscitate/do not intubate during the afternoon on 03/20/2017. Throughout the whole day, frequent labs have been ordered and I have been updating patient's new findings with patient and patient's family members. Patient continues to have desaturation of the renal function and patient also noted to have continued elevation of the liver enzymes. It shows that patient has multiorgan starting to be affected by current active disease process. Later, patient started to lose IV access while patient is requiring aggressive IV resuscitation. Patient also has intermittent soft blood pressure. Informed consent was obtained from the patient and a central line was placed with assistance from Dr. Lundy. OBJECTIVE: VITAL SIGNS: Temperature is 98.3, pulse is 137, respirations 24, blood pressure 86/64, pulse oximetry 97% with NIPPV around 4 a.m. GENERAL: Moderate to severe distress secondary to persistent back pain and generalized discomfort. Patient is alert and oriented. Able to answer questions and follow commands. Demonstrated capacity for making decisions. HEENT: Normocephalic, atraumatic. Extraocular motors grossly intact. There is central line access in the right neck. CARDIOVASCULAR: Positive S1, S2, tachycardiac with heart rate being persistently above 100. RESPIRATORY: Clear to auscultation bilaterally. ABDOMEN: Morbidly obese, soft, nontender. Bowel sounds present. EXTREMITIES: Hands and feet are clammy and there is some mottling, especially in the lower extremities. No lower extremity edema is noted. LABORATORY DATA: WBC 4.1, hemoglobin 15.8, hematocrit 48.2, platelet count 250. Sodium 139, potassium 4, chloride 109, carbon dioxide 11, BUN 80, creatinine 4.38, GFR 14.3, fasting glucose 136, calcium 7.2, total bilirubin 0.5, AST 536, ALT 373, alkaline phosphatase 90, total CK 154, troponin I is 0.06, C-reactive protein 28.7, total protein 4.8, albumin 1.9. Most recent ABG showed pH of 7.253, pCO2 is 18.6, pO2 is 132.3, HCO3 is 8, total CO2 is 8.6. IMAGING STUDIES: Chest x-ray after the central line shows right internal jugular central venous line in expected location of the superior vena cava. No evidence of pneumothorax. ASSESSMENT AND PLAN: 1. Sepsis from Clostridium (C) difficile colitis. Patient is currently receiving oral vancomycin and IV Flagyl. Patient continues to have significant diarrhea noted in the rectal tube. Patient has been receiving IV fluid aggressively. Due to current metabolic acidosis, patient also received IV bicarbonate supplement. Blood pressure is maintained with IV resuscitation at this moment. Patient does have central line access. Dr. Myers, the infectious disease specialist, has been consulted. We appreciate her assistance. Will follow with blood cultures, first set was obtained before antibiotics. Will interpret second set of blood cultures with caution. Will also continue to follow the urine cultures to rule out any other infectious disease process. 2. Clostridium (C) difficile colitis. On antibiotics. 3. History of stage II colon cancer status post colectomy in December 2016, by Dr. Funez. Patient also started on chemotherapy from 03/04/2017 to 03/17/2017. I have discussed the case with Dr. Mcelroy. Even though patient has a colon resection for his stage II colon cancer, according to Dr. Mcelroy, under some circumstances chemotherapy may be beneficial for the patients after the surgical removal. The situation was explained to the patient and patient decided to proceed with chemotherapy previously. Now, patient has developed significant adverse effect from the chemotherapy and patient may not be a candidate for further chemotherapy. 4. Chronic atrial fibrillation. On Coumadin. 5. Patient had a supratherapeutic INR with an INR of 12.45. Coumadin was discontinued and patient was given vitamin K to reverse the INR. Will continue to monitor patient on telemetry. 6. History of seizure disorder. 7. Chronic venous stasis changes. 8. Obstructive sleep apnea (TOBIN), on continuous positive airway pressure (CPAP). Patient will be on obstructive sleep apnea (TOBIN) protocol. 9. Acute renal failure. May possibly be related to patient's current acute sepsis from Clostridium (C) difficile. Patient has been receiving aggressive IV resuscitation. However, patient is noted to have continued decrease of renal function. Dr. Watkins has been consulted. Will continue to monitor patient for the next 12 hours. If patient does not show any significant improvement of the renal function, patient may need hemodialysis. 10. Hepatic injury secondary to current sepsis. Continue to monitor. There is still a large fluctuation of the liver enzymes. 11. Deep venous thrombosis (DVT) prophylaxis. Thromboembolism deterrents (TEDs) and sequential compression devices have been ordered. Total time for family and patient discussion has been greater than 1 hour. Currently, patient is FULL CODE.
[2017-03-21 01:02] LABS: VENOUS BASE EXCESS -22.9 (-2.0-2.0); VENOUS O2 SATURATION 74.9 % (60.0-80.0); VENOUS PARTIAL PRESSURE O2 61.4 mmHg (30.0-50.0); VENOUS STANDARD HCO3 8.3 MEQ/L; VENOUS TOTAL CO2 15.2 MEQ/L (24.0-28.0)
[2017-03-21 01:03] LABS: MEAN CORPUSCULAR HEMOGLOBIN 31.5 pg (27.0-33.0); MEAN CORPUSCULAR HGB CONC 31.9 g/dl (32.0-36.5); MEAN CORPUSCULAR VOLUME 98.9 fl (80.0-96.0); WHITE BLOOD COUNT 7.2 K/mm3 (4.0-10.0)
[2017-03-21 01:11] LABS: INR 2.61
[2017-03-21 01:46] LABS: ALBUMIN 1.7 GM/DL (3.2-5.2); ALBUMIN/GLOBULIN RATIO 0.52 (1.00-1.93); BILIRUBIN,TOTAL 0.7 MG/DL (0.2-1.0); CALCIUM LEVEL 9.1 MG/DL (8.8-10.2); CREATININE FOR GFR 5.4 MG/DL (0.70-1.30); GLOMERULAR FILTRATION RATE 11.2 (>42)
[2017-03-21 01:50] LABS: POTASSIUM SERUM 5.3 MEQ/L (3.5-5.1)
[2017-03-21] MEDS ORDERED: SODIUM BICARBONATE 8.4% INJ 50 ML SYRINGE ONE (05:37)
[2017-03-21] MEDS ORDERED: SODIUM BICARBONATE 4.2% INJ 10 ML SYRINGE ONE (05:37)
[2017-03-21] MEDS ORDERED: EPINEPHrine 1MG/10ML SYRINGE 1.5IN ONE (05:37)
[2017-03-21] MEDS ORDERED: CALCIUM CHLORIDE 10% 1 GM/10 ML SYR ONE (05:37)
--- NOTE | 2017-03-21 08:17 | ECGEPIP ---
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
--- NOTE | 2017-03-21 12:49 | RO ---
DATE OF PROCEDURE: 03/20/2017 PREPROCEDURE DIAGNOSIS: Hypotension. POSTPROCEDURE DIAGNOSIS: Hypotension. PROCEDURE PERFORMED: Right internal jugular (IJ) triple lumen central line. SURGEON: Luann Lundy MD TOUR SALES REPRESENTATIVE: Dr Henriquez ANESTHETIC: 1% local lidocaine. VENTILATION: Continuous positive airway pressure (CPAP). SEDATION: None. ESTIMATED BLOOD LOSS: 10 mL. DESCRIPTION OF PROCEDURE: Patient was placed in supine position. The right side of patient's neck was cleaned with Chloraprep and patient was covered in the usual manner. Ultrasound probe with sterile cover was used to locate patient's right IJ. Subsequently, subcutaneous 1% lidocaine was injected with ultrasound guidance. The needle was inserted aimed for patient's right IJ with flash of blood returned. Subsequently, wire was inserted through the needle and wire position was confirmed with ultrasound in the patient's right IJ. Subsequently, site is dilated and triple lumen central line was inserted over guidewire with Seldinger technique and guidewire was removed. Blood culture was obtained from the triple lumen central line and all three ports of the central line was flushed with normal saline, and subsequently triple lumen central line was secured with clamps and stitches and dressing was placed. Sterile cover was removed. X-ray was ordered for confirmation. Patient tolerated procedure with no complications. ARSLAN
--- NOTE | 2017-03-21 19:58 | DSES ---
DATE OF ADMISSION: 03/19/2017 DATE OF : 03/21/2017 at 1 a.m. PRIMARY CARE PROVIDER: Ronnie Landry Jr., MD CONSULTANTS: Cell Tender Helper, Rafael Watkins MD PROCEDURES: Right internal jugular (IJ) central line insertion and intubation. DISCHARGE DIAGNOSES: 1. Cardiovascular compromise. 2. Multiorgan failure. 3. Severe septic shock from clostridium (C) difficile colitis. 4. C. difficile colitis. 5. Stage II colon cancer status post colectomy and status post chemotherapy. 6. Chronic atrial fibrillation. 7. Supratherapeutic INR with INR of 12.45 at admission. 8. Seizure disorder. 9. Chronic venous stasis changes. 10. Obstructive sleep apnea (TOBIN). 11. Acute renal failure. 12. Acute hepatic failure secondary to hepatorenal syndrome and sepsis. 13. Metabolic encephalopathy in the setting of septic shock HOSPITALIZATION COURSE: Patient is a 71-year-old male who presented to [facility] on 03/19/2017, with severe diarrhea with generalized weakness and patient is admitted on the telemetry floor. Several hours after admission, patient was found to have decompensation. Patient became confused and drowsy and patient was noted to have worsening renal function and patient was noted to be starting to have very soft blood pressures. At nighttime, a discussion was made with patient's family members, who declined the recommendation for pressor with central line insertion and patient was continued on IV fluid. Even with the normal saline running at a high rate, patient's blood pressure was just barely maintained in the minimal satisfactory range. Throughout the day, multiple lab tests were performed to check the patient's renal function. Due to rapid worsening of the renal function, child psychology teacher, Dr. Watkins was consulted urgently. In those hours, patient was also found to have progressive worsening of liver functions. Patient's family members and the family friend has been discussing with the patient, and they decided to pursue full measures and the do not resuscitate/do not intubate was revoked and patient agreed for the central line and patient was transferred from progressive care unit (PCU) to intensive care unit (ICU) for upper level of care. Throughout the whole process, patient has also been receiving antibiotic for active C. difficile colitis. Besides the regular regimen for C. difficile colitis, patient was also placed on broad-spectrum antibiotics for broader coverage. Later, around midnight, a max cart was called. Patient received multiple doses of epinephrine and patient was intubated. There was a moment where patient had successful resuscitation and had return of spontaneous circulation (ROSC). However, shortly after, patient became asystole and another round of resuscitation was attempted. Later, patient was pronounced at 1:01 a.m. on 03/21/2017. Most recent vital signs at 9 p.m. on 03/20/2017, showed temperature 99.9, pulse 113, respiration rate 38, blood pressure 115/71, pulse oximetry 98% with 4 liters nasal cannula. DISCHARGE TIME: Greater than 30 minutes. MTDD
--- NOTE | 2017-03-22 19:26 | CR ---
DATE OF CONSULTATION: 03/20/2017 REASON FOR CONSULTATION: Colon cancer on chemotherapy. HISTORY OF PRESENT ILLNESS: Mr. Lewis is a 71-year-old man with a history of high risk T3 N0 colonic adenocarcinoma who underwent right hemicolectomy in December 2016, for this. He was seen on consult and because of a high-risk tumor, specifically the presence of partial obstruction, he was offered chemotherapy. He started capecitabine chemotherapy two weeks ago. He was seen in our office on Friday and he was completing chemotherapy at that time. His vital signs were stable at that time. He started feeling progressively unwell after he completed his chemotherapy. He developed diarrhea. He came to [facility] emergency room (ER) and was found to have renal failure. Subsequently he was noted to have decreasing white blood cell count and C. difficile positive stools. He is currently on treatment with metronidazole and vancomycin for a documented Clostridium (C.) difficile positive stools. He is also on piperacillin-tazobactam. Since his admission, his blood pressure has improved but he is still tachypneic and tachycardic. PHYSICAL EXAMINATION: On physical exam, he was lying on the bed with tachypnea. Oxygen saturation 99% on oxygen nasal cannula four liters. Blood pressure was 137/65. Heart rate 100 per minute. He had no oral mucositis. LUNGS: Fair air entry. No rales, no rhonchi, no wheeze. HEART: S1, S2, tachycardic. ABDOMEN: Soft, nontender. No guarding. Positive bowel sounds. EXTREMITIES: No calf swelling, no calf tenderness. He had mottling on his skin on his lower extremities. IMPRESSION AND PLAN: Mr. Lewis is a 71-year-old man with a T3 N0 colon cancer who completed his first cycle of capecitabine chemotherapy on Friday and is presently admitted with Clostridium (C.) difficile colitis, renal failure, and sepsis. Continue supportive care with antibiotics and intravenous (IV) fluid hydration. I discussed with Mr. Lewis that since he had a significant reaction to chemotherapy, it would not be prudent to continue with chemotherapy. I will follow the patient while he is in the hospital. Thank you for informing me of his admission.
--- NOTE | 2017-03-22 21:47 | CR ---
DATE OF CONSULTATION: 03/20/2017 REASON FOR CONSULTATION: Acute renal failure, severe metabolic acidosis, and hypotension in this gentleman with multiple chronic medical problems. HISTORY OF PRESENT ILLNESS: Mr. Lewis is a 71-year-old gentleman who was admitted to [facility] yesterday due to diarrhea and generalized weakness. He has known history of colon cancer, status post right hemicolectomy and recent chemotherapy. The patient was brought to the emergency room yesterday due to generalized weakness. He developed hypotension and was quite restless and also had acute renal failure even on admission. Since admission over next 24 hours, his kidney function has worsened. He also has developed severe metabolic acidosis. Nephrology consultation was requested this afternoon, and the patient is seen in intensive care unit. PAST MEDICAL HISTORY: Significant for: 1. History of hypertension. 2. History of chronic atrial fibrillation. 3. History of anemia. 4. History of seizure disorder. 5. History of chronic venous stasis and lower extremity cellulitis. 6. History of stage II colon cancer, status post right hemicolectomy. 7. History of obstructive sleep apnea requiring continuous positive airway pressure (CPAP). PAST SURGICAL HISTORY: Significant for: 1. History of gastric bypass surgery. 2. Urethral dilatation. 3. History of colonoscopy followed by a right hemicolectomy. PERSONAL AND SOCIAL HISTORY: The patient is . 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 There is no history of alcohol or drug use. FAMILY HISTORY: Negative for colon cancer or end-stage renal disease. REVIEW OF SYSTEMS: The patient is quite restless in the bed. Apparently he had chemotherapy for a couple of weeks for oral cancer. He developed diarrhea and generalized weakness, due to which he was brought to the emergency room yesterday. There is no known history of high-grade fever or chills. Ears, nose and throat are unremarkable. Cardiovascular system is negative for known coronary artery disease, chest pain, or palpitations. He does have history of chronic atrial fibrillation. Respiratory system is significant for shortness of breath. He denies any hemoptysis or cough. Gastrointestinal (GI) system is significant for massive diarrhea. He has tested positive for Clostridium (C) difficile and currently has a rectal tube in place. Genitourinary () system is significant for decreased urine output. He has acute renal failure. There is no known history of kidney stones. Endocrine system is negative for diabetes or thyroid problems. Neurological system is significant for seizure disorder. Hematological system is significant for chronic anticoagulation. There is no history of rectal bleeding or black- colored stools. Skin is negative for rash or ulcers. Psychosocial system is negative for depression or anxiety. ALLERGIES: The patient has allergy to eggs and nuts. HOME MEDICATIONS. Include: - calcium citrate two tablets twice a day - ascorbic acid 500 mg two tablets daily - biotin 5 mg daily - chlorthalidone 25 mg daily - vitamin D3 at 10,000 units every 2 days - ferrous sulfate 325 mg daily - multivitamin one tablet daily - phenytoin 250 mg in the morning 375 mg at bedtime - valsartan 80 mg daily - Coumadin 5 mg daily. PHYSICAL EXAMINATION: Elderly gentleman lying in the ,bed turning and tossing quite frequently. He is quite restless. Temperature is 97.5 degrees Fahrenheit , heart rate 110 per minute, respiratory rate 34 per minute, blood pressure 107/59 mm of mercury, and oxygen saturation 97% on 4 liters oxygen. Head is atraumatic. Oral mucosa is quite dry. Pupils are equal and reactive to light, and sclerae are anicteric. Neck is supple, and there is no jugular venous distention (JVD). A central line is present in right internal jugular vein. Heart exam reveals tachycardia and irregular rhythm. Lungs sound clear to auscultation. Abdomen is soft with mild tenderness. Bowel sounds are hyperactive. Extremities have chronic stasis changes with hyperpigmentation. There is no cyanosis or clubbing. Neurologically, he is awake, quite restless but able to answer questions. He does not seem to have a focal neurological deficit. LABORATORY DATA: Yesterday his WBC count was 4.8, hemoglobin 17.2, and hematocrit 51.0. Today his WBC count is 4.1, hemoglobin 15.8, and hematocrit 48.2. food specialist his WBC count was down to 1.3. His chemistry on admission showed a BUN of 62 and creatinine 2.82. Sodium was 137 and potassium 3.5 with carbon dioxide 14. Lactic acid level was 5.4. Just after midnight, his BUN went up to 73 and creatinine 3.67. CO2 was 15 and lactic acid was 5.6. This morning sodium 141, potassium 3.5, CO2 of 11, BUN 78, and creatinine 3.69. Lactic acid level 5.2. Most recent chemistry early afternoon showed sodium 139, potassium 4.0, BUN is 80, and creatinine 4.38. Lactic acid 4.0. AST 536, ALT 373, alkaline phosphatase 90, total protein 4.8 and albumin 1.9. Dilantin level is 6.3 today. Urinalysis unremarkable. Stool tested positive for C. difficile. Imaging studies included a chest x-ray, which was negative for any infiltrate or effusion. A right internal jugular vein central venous line in place. PROBLEMS: 1. Acute renal failure. The patient was quite hypotensive on admission and has been hypotensive most of the day today. He is quite volume depleted and dehydrated due to diarrhea with dehydration.. I discussed with Dr. Henriquez earlier when he requested the consultation and advised aggressive intravenous IV fluid hydration. At this point the patient is not on pressors, and he has minimal urine output. I have discussed with the patient and his family about his renal prognosis. We are going to aggressively hydrate him through the night. The patient and his family have been informed that if his kidney function does not improve in next 12-24 hours, he might require emergent hemodialysis. 2. Metabolic acidosis. Patient has severe acidosis related to ongoing diarrhea and acute renal failure. His most recent blood gas showed a pH of 7.25, pCO2 of 18.6, pO2 of 132, and bicarbonate only 8.0. We will initiate sodium bicarbonate drip at 250 mL per hour with 150 mEq of sodium bicarbonate in each liter and repeat his blood gas and chemistry in about 6 hours. Depending upon results of his next chemistry and blood gas, we will consider to cut down the rate of IV fluid. My feeling is that he will need to continue sodium bicarbonate drip at least through the night. 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 3. C. difficile colitis. The patient has been on intravenous Flagyl, oral vancomycin, and has been seen by Dr. Myers. At this point both antibiotics will be continued. 4. Atrial fibrillation. His ventricular rate is slightly tachycardiac. He has been treated with digoxin; however, the tachycardia could be related to dehydration and acute illness. At present will need to aggressively hydrate him and monitor his hemodynamics. 5. Lactic acidosis. This is related to dehydration and hypotension. We hope that with aggressive IV fluid hydration his lactic acidosis will improve. I thank you for involving me in the care of Mr. Lewis. I will follow him along with you. ARSLAN
--- NOTE | 2017-03-23 06:59 | CR ---
DATE OF CONSULTATION: 03/20/2017 Asked to consult by hospitalist for evaluation of Clostridium (C) difficile colitis with acute renal failure. HISTORY OF PRESENT ILLNESS: Mr. Lewis is a 71-year-old gentleman with a recent diagnosis of stage II colon cancer diagnosed in December 2016. He had a colonoscopy on 11/[address] Funez and underwent a right-sided colectomy on 12/[address] Funez. The patient was found to have a moderately differentiated invasive adenocarcinoma. Zero out of the 17 lymph nodes were positive. He is at T3 N0 M0. The patient was started with chemotherapy by Dr. Mcelroy on 03/04. Postoperatively in December, the patient received two doses of ertapenem perioperative prophylaxis. He came to the hospital feeling ill with severe profuse diarrhea. He denied having any fever or chills. No headache. He was having abdominal pain. No chest pain or shortness of breath. No cough, palpitations. He had profuse diarrhea, dry heaves, but no vomiting. PAST MEDICAL HISTORY: Significant for: 1. Chronic atrial fibrillation on Coumadin. 2. Hypertension. 3. Iron deficiency anemia. 4. Seizure disorder, last seizure was 5 years ago. 5. Chronic venous stasis. 6. History of cellulitis of lower extremity. 7. Colon cancer, stage II, T3 N0 M0, receiving chemotherapy by Dr. Mcelroy status post right-sided colectomy by Dr. Funez. 8. Obstructive sleep apnea on continuous positive airway pressure (CPAP). PAST SURGICAL HISTORY: 1. Bilateral total knee arthroplasty, most recently done by Dr. Godinez on the right side in 2014. 2. Colonoscopy by Dr. Stevens in 2007. 3. Colonoscopy by Dr. Funez November 2016 and right colectomy. SOCIAL HISTORY: He lives in [place]. He is amrried. He has two children. 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 He quit smoking 30 years ago. He denies any alcohol or illicit drug use. FAMILY HISTORY: Nonrevealing except for a daughter with multiple sclerosis. REVIEW OF SYSTEMS: The patient has been lethargic. He is uncomfortable. He does have significant diarrhea and has a rectal tube in place. He has a Simpson catheter. He is lethargic. He has decreased appetite, some nausea, but no vomiting. No cough, but some shortness of breath. He is on oxygen 4 liters nasal cannula. PHYSICAL EXAMINATION: Ill-looking gentleman, morbidly obese in moderate discomfort. Pulse 111, respiratory rate 34, blood pressure 137/65, oxygen saturation 99% on 4 liters nasal cannula. Heart: Normal S1, S2, tachycardiac. No murmurs appreciated. Lungs; There are anterior rhonchi bilaterally. Abdomen: Obese, soft, distended, diffusely tender. No guarding. Extremities: Trace edema. Neurologic exam: He is alert and oriented, lethargic and looks very uncomfortable. LABORATORY DATA: White count is 4.1 which has increased from 1.3 yesterday, hemoglobin 15.8, hematocrit 48.2, platelets 250, 66% neutrophils, 6% bands, 23% lymphocytes, 1 metamyelocyte. Sodium 139, potassium 4, chloride 109, bicarbonate 11, BUN 80, creatinine 4.38. His creatinine was normal in December 2016, GFR 14, glucose 136, lactic acid 5.28 down to 4, calcium 7.2, bilirubin 0.5, AST 536 which has increased from 39, ALT 373 increased from 45, CRP 28.7, total protein 4.8, albumin 1.9. Blood culture one set was done on 03/19 is no growth after 24 hours. Urine culture is pending. Another blood culture is pending. Stool for C. difficile was positive. Dilantin level was 6.3. Hepatitis A, B and C are pending. IMAGING STUDIES: Abdominal x-ray shows possible small bowel obstruction with small bowel loops with paucity of distal gas, air fluid levels, no evidence of free air, clips in the right upper quadrant. Chest x-ray showed right IJ in the expected position. No evidence of pneumothorax. There is linear fibrosis and plate-like atelectasis, but no acute infiltrate. IMPRESSION: This is a 71-year-old gentleman with a recent diagnosis of colon cancer status post colectomy December 2016 received ertapenem for operative prophylaxis, has done well until he started chemotherapy 03/04 and now has developed Clostridium (C) difficile colitis, severe with acute renal failure, hypotension and septic shock. The patient is on intravenous (IV) Zosyn, oral vancomycin and there is no evidence of other bacterial infection. His chest x-ray is clear. Urinalysis with no evidence of infection. Urine culture is pending. Blood culture one out of one out of two sets is negative. The patient does not have a central line to be concerned about a line infection. PLAN: Discontinue broad-spectrum antibiotic, especially Zosyn, and repeat second set of blood culture. Chest x-ray was done today post central line and was negative. Increase dose of vancomycin to 250 mg every 6 hours. Start IV Flagyl 500 mg every 8 hours. The patient is very critical and his DNR status is being discussed with his family. MEDICATIONS: - dilantin 250 mg by mouth daily - morphine as needed for pain - sodium bicarbonate IV - dilantin 375 mg by mouth nightly - metronidazole 500 mg IV every 8 hours - vancomycin 250 mg by mouth every 8 hours - Tylenol as needed - Zofran as needed ALLERGIES: EGGS and NUTS. Thank you for consultation.
== END 2017-03-21 01:01 | disposition expired | DRG 871 ==
LOC: M ED 10:05 → M ED INP 13:23 → M PCU 14:50 → M ICU 03-20 15:06
PROVIDERS: ADMIT Internal Medicine; ATTEND Internal Medicine
DX: A41.9 Sepsis, unspecified organism (principal); R65.21 Severe sepsis with septic shock; K76.7 Hepatorenal syndrome; G93.41 Metabolic encephalopathy; K72.00 Acute and subacute hepatic failure without coma; C18.9 Malignant neoplasm of colon, unspecified; A04.7 Enterocolitis due to Clostridium difficile; E87.2 Acidosis; N17.9 Acute kidney failure, unspecified; Z68.41 Body mass index [BMI] 40.0-44.9, adult; E66.9 Obesity, unspecified; I48.2 Chronic atrial fibrillation; G47.33 Obstructive sleep apnea (adult) (pediatric); G40.909 Epilepsy, unspecified, not intractable, without status epilepticus; Z79.01 Long term (current) use of anticoagulants; D50.9 Iron deficiency anemia, unspecified; Z87.891 Personal history of nicotine dependence; E86.0 Dehydration; Z79.899 Other long term (current) drug therapy; Z91.012 Allergy to eggs; Z91.010 Allergy to peanuts